=== PATIENT | male | born 1935 | race Caucasian/White ===

== ENCOUNTER 2016-11-03 06:48 | Inpatient (IN) ==
--- NOTE | 2016-11-03 07:33 | PROVIDER DOCUMENTATION ---
HPI-General Adult - General Chief Complaint: Altered Mental Status Stated Complaint: tremors, confusion Time Seen by Provider: 11/03/16 06:58 Source: patient, family Home Medications: Home Medication List Medication Instructions Recorded Confirmed Last Taken Type Bimatoprost 2.5 ml BOTH EYES DAILY 08/13/16 08/13/16 08/13/16 05:00 History Finasteride [Proscar] 5 mg PO DAILY 08/13/16 08/13/16 08/12/16 09:00 History Gabapentin 300 mg PO TID 08/13/16 08/13/16 08/12/16 21:00 History Metformin [Glucophage] 500 mg PO BID 08/13/16 08/13/16 08/12/16 21:00 History Metoprolol [Lopressor] 50 mg pe PO BID 08/13/16 08/13/16 08/12/16 09:00 History Simvastatin 20 mg PO HS 08/13/16 08/13/16 08/12/16 21:00 History - History of Present Illness -Gen Adult Nature of Presenting Problems: Per , pt woke up with confusion and tremor. Pt was disorientated and could not find his medications, etc. Denies LOC/fall/injury/CP/cough/fever/N/V. Pt was started chemo therapy for Multiple Myoloma since 10/[address] Wagner. Reports he improved a lot after EMS arrival. H/o CABG in year 1999. Location of Pain/Injury: reports: none Pain Radiation: reports: no radiation Quality of Pain: reports: none Severity: reports: moderate Onset/Duration: reports: this morning Timing: reports: improving, gone now Context/Activities at Onset: reports: none Modifying Factors: improves with: nothing Associated Symptoms: denies: arm pain, chest pain, constipation, cough, diaphoresis, diarrhea, fatigue, fever/chills, headaches, heartburn, loss of appetite, malaise, muscle aches, nausea, seizure, shortness of breath, pain with inspiration, syncope, vomiting, trouble walking Similar Symptoms Previously?: No Recently seen or treated by another doctor?: No Review of Systems - Adult - REVIEW OF SYSTEMS - ADULT Constitutional: reports: no symptoms reported. denies: fever, fatique Eyes: reports: no symptoms reported. denies: discharge, redness Ears, Nose, Mouth & Throat: reports: no symptoms reported. denies: ear pain, nose pain, loose teeth, throat pain Cardiovascular: reports: no symptoms reported Respiratory: reports: no symptoms reported. denies: chronic cough, cough, dyspnea on exertion, hemoptysis, pleurisy, shortness of breath, wheezing Gastrointestinal: reports: no symptoms reported Genitourinary: reports: no symptoms reported Musculoskeletal: reports: see HPI. denies: bone pain, back pain, frequent leg cramps, joint pain, joint swelling, muscle aches, muscle weakness Integumentary: reports: no symptoms reported Neurological: reports: see HPI, tremors, other (Confusion). denies: dizziness/ vertigo, headache/migraines, loss of balance, numbness, paresthesia, seizure, slurred speech, syncope Psychiatric: reports: no symptoms reported Endocrine: reports: no symptoms reported Hematologic/Lymphatic: reports: no symptoms reported Allergic/Immunologic: reports: no symptoms reported All Other Systems: Reviewed and Negative Past History - Adult - PAST MEDICAL HISTORY-ADULT Review of Records: reports: Old Records Reviewed, Nursing Assessment Review, Medications Reviewed, Social history reviewed & non-contributory. Physical Exam-General - PHYSICAL EXAM-ADULT Initial Vital Signs Reviewed: Yes - CONSTITUTIONAL General Appearance: appears well, alert, no apparent distress. negative: mild distress, moderate distress, severe distress, cachetic, obese, lethargic, slow to respond - EYES Eyes: PERRL/EOMI, pink conjunctivae, anisocoria - HEAD, EARS, NOSE, MOUTH & THROAT HENMT: normocephalic/atraumatic, moist mucous membranes - NECK Neck: non-tender, full range of motion, supple - RESPIRATORY Respiratory: chest non-tender, lungs clear, normal breath sounds, no pleuratic chest pain, no respiratory distress, no accessory muscle use - CARDIOVASCULAR Cardiovascular: normal peripheral pulses, regular rate, rhythm, no edema, no gallop, no JVD, no murmur - GASTROINTESTINAL (ABDOMEN) Abdominal Exam: normal bowel sounds, non tender, soft, no organomegaly, no pulsatile mass - MUSCULOSKELETAL Back Exam: normal inspection, no CVA tenderness, no vertebral tenderness Extremity: normal range of motion, non-tender, normal gait, normal inspection - SKIN Integumentary: normal color, normal turgor, warm/dry, abrasion(s) - NEUROLOGIC Neurologic: remarketing rep II-XII nml as tested, grossly normal, no motor/sensory deficits , negative romberg's sign. negative: aphasia, EOM palsy, facial droop, focal weakness, motor weakness, sensory deficit - PSYCHIATRIC Psych/Mental Status: normal mood/affect, normal thought content, normal thought process, oriented x 3 Progress - PLAN OF CARE/RESULTS Progress/Plan/Lab Results: Vital Signs - 8 hr 11/03/16 06:57 Temperature 97.9 F Pulse Rate 76 Respiratory Rate 19 Blood Pressure 183/80 O2 Sat by Pulse Oximetry 94 L Laboratory Results - last 24 hr 11/03/16 06:56 POC Glucose 188 H Orders Category Date Time Status Cardiac Monitoring DIRECTED Care 11/03/16 07:01 Active Finger Stick Blood Sugar (ED) DIRECTED Care 11/03/16 07:01 Active Saline Loc NOW Care 11/03/16 07:01 Active CHEST-1 VIEW [RAD] Stat Exams 11/03/16 07:01 Taken HEAD W/O CONTRAST [CT] Stat Exams 11/03/16 07:01 Ordered ABG [RESP] Routine Lab 11/03/16 07:12 Ordered ALCOHOL BLOOD Stat Lab 11/03/16 06:50 Received BLOOD CULTURE [BLDCUL] Stat Lab 11/03/16 07:27 Uncollected CBC WITH ELECTRONIC DIFF [HEME] Stat Lab 11/03/16 06:50 Results CK PROFILE [SP CHEM] Stat Lab 11/03/16 06:50 Received COMPREHENSIVE METABOLIC PANEL [CHEM] Stat Lab 11/03/16 06:50 Received LACTATE, PLASMA [CHEM] Stat Lab 11/03/16 06:50 Received PRO B-NATRIURETIC PEPTIDE Stat Lab 11/03/16 06:50 Received PROTIME WITH INR [COAG] Stat Lab 11/03/16 06:50 Received PTT [COAG] Stat Lab 11/03/16 06:50 Received TROPONIN T Stat Lab 11/03/16 06:50 Received TSH Stat Lab 11/03/16 06:50 Received URINALYSIS W/POSS RFLX CULT-1 [URINALYSIS] Stat Lab 11/03/16 07:01 Uncollected URINE DRUG SCREEN Stat Lab 11/03/16 07:01 Uncollected Pulse Oximetry Stat Oth 11/03/16 07:01 Active EKG [EKG] Stat Ther 11/03/16 06:48 Ordered Result Diagrams: 11/03/16 06:50 11/03/16 06:50 - EKG 1 EKG Interpretation (*Must complete 3 of following elements*): Abnormal Rate: 83 Rhythm: Sinus rhythm with PVC [place]: normal [place] Interval: normal ST Wave: non-specific ST changes Prior EKG Comparison: unchanged from prior - XRAY 1 XRAY Study: Chest Impression: Normal - CT/MRI 1 CT Study: Head Impression: Normal - CONSULTS/PCP/HOSPITALIST Notification #1 *Consult/PCP/Hospitalist*: Dr. Evans Time Discussed: 10:29 Consult Disposition: Will see in ED, Admit Departure - Departure Date of Disposition Decision: 11/03/16 Time of Disposition Decision: 10:28 DIAGNOSIS: History of cancer chemotherapy CHF (congestive heart failure) Qualifiers: Congestive heart failure type: unspecified congestive heart failure type Congestive heart failure chronicity: acute Qualified Code(s): I50.9 - Heart failure, unspecified Altered mental status Qualifiers: Altered mental status type: unspecified Qualified Code(s): R41.82 - Altered mental status, unspecified Disposition: ADMITTED INPATIENT 09 Certified Medical Emergency: Emergent Condition: Stable Referrals and Follow-Ups: Anayeli Velazquez CRNP [Primary Care Provider] - - Critical Care Note This patient required my direct & personal management of CC.: No
[2016-11-03 07:34] LABS: INR 1.06; PROTIME 11.2 Seconds (9.2-11.7)
[2016-11-03 07:35] LABS: EOS# 0.01 X1000 (0.0-0.7); EOS% 0.3 % (0.0-10.0); HEMOGLOBIN 10.5 g/dL (14.0-18.0); IMM GRAN# 0.68 X1000 (0.0-0.04); IMM GRAN% 20.1 % (0.0-0.5); LYMPH# 0.55 X1000 (1.2-3.4); LYMPH% 16.2 % (20.5-51.1); MANUAL DIFF NEEDED? NO; MCH 36.6 PG (27-31); MCHC 33.9 g/dL (33-37); MONO# 0.23 X1000 (0.11-0.59); MONO% 6.8 % (1.7-9.3); NEUT% 56.6 % (42.2-75.2); PLT 47 X1000 (130-400); RBC 2.87 XMIL (4.7-6.1)
[2016-11-03 07:44] LABS: AGAP 14; ALBUMIN 4.1 g/dL (3.5-5.0); ALKALINE PHOSPHATASE 70 U/L (32-122); BUN 21 mg/dL (8-22); CALCIUM 10.1 mg/dL (8.8-10.2); CHLORIDE 102 mmol/L (98-107); CK PROFILE 41 U/L (24-204); COSMO 283; GOT 16 U/L (10-34); GPT 15 U/L (10-44); POTASSIUM 4.6 mmol/L (3.5-5.1); SODIUM 137 mmol/L (136-145); TCO2 21 mmol/L (25-35); TOTAL BILIRUBIN 0.84 mg/dL (0.20-1.00); TOTAL PROTEIN 6.8 g/dL (6.3-8.3)
--- NOTE | 2016-11-03 07:46 | Diag Imaging Result Doc PS360 ---
EXAM: HEAD W/O CONTRAST HISTORY: AMS TECHNIQUE: Dose reduction protocol COMPARISON: None. FINDINGS: No parenchymal hemorrhage. No epidural or subdural hematoma. No subarachnoid hemorrhage. Mild atrophy and ventricular prominence. No mass identified on this noncontrasted exam. No hydrocephalus. No sinus opacification. IMPRESSION: 1.No hemorrhage. 2.Mild atrophy. Electronically signed by Micah Sky 11/03/2016 7:44 AM
--- NOTE | 2016-11-03 07:47 | Diag Imaging Result Doc PS360 ---
EXAM: CHEST-1 VIEW HISTORY: AMS TECHNIQUE: Portable AP COMPARISON: 03/27/2016 FINDINGS: The lungs are well expanded. The heart is not enlarged. Sternal wires are present. There is a calcified granuloma in the right costophrenic angle. The vessels are not distended. There are no infiltrates. No effusion identified. IMPRESSION: Stable chest. Electronically signed by Micah Sky 11/03/2016 7:45 AM
[2016-11-03 07:49] LABS: ALLEN TEST NO; BLOOD TYPE ARTERIAL; DRAW SITE R BRACHIAL; METHB 0.6 % (0.0-1.5); O2(CT) 13.3 mL/dL (15.0-23.0); PCO2(98.6) 34 mmHg (35-45); PO2(98.6) 84 mmHg (60-100); SAMPLE BLOOD; SAO2 97.9 % (95.0-100.0); THB 9.8 g/dL (11.5-17.4); pH(98.6) 7.42 (7.35-7.45)
[2016-11-03 07:50] LABS: MODALITY ROOM AIR
[2016-11-03] MEDS ORDERED: NS 500 ML IV ONE (07:51)
[2016-11-03 07:52] LABS: URINE CULTURE NEEDED? NO; URINE MICRO REVIEW NEEDED? NO; URINE SOURCE CLEAN CATCH
[2016-11-03 08:01] LABS: BILIRUBIN URINE NEGATIVE (NEGATIVE); BLOOD URINE NEGATIVE (NEGATIVE); COLOR YELLOW; GLUCOSE URINE 500 mg/dL (NEGATIVE); LEUKOCYTES URINE NEGATIVE (NEGATIVE); NITRITE URINE NEGATIVE (NEGATIVE); PH URINE 5.5; PROTEIN URINE TRACE mg/dL (NEGATIVE); TURBIDITY URINE CLEAR (CLEAR); UROBILINOGEN URINE NORMAL (NORMAL)
[2016-11-03 08:02] LABS: UR EPITHELIAL CELLS <10 /HPF (<10); URINE BACTERIA NEGATIVE /HPF; URINE RBC <10 /HPF (<10); URINE WBC <10 /HPF (<10)
[2016-11-03 08:13] LABS: UR AMPHETAMINES QUAL NONE DETECTED (NONE DETECT); UR BARBITUATES QUAL NONE DETECTED (NONE DETECT); UR BENZODIAZEPIN QUAL NONE DETECTED (NONE DETECT); UR CANNABINOIDS QUAL NONE DETECTED (NONE DETECT); UR COCAINE QUAL NONE DETECTED (NONE DETECT); UR METHADONE QUAL NONE DETECTED (NONE DETECT); UR OPIATES QUAL NONE DETECTED (NONE DETECT); UR OXYCODONE QUAL NONE DETECTED (NONE DETECT); UR PCP QUAL NONE DETECTED (NONE DETECT)
--- NOTE | 2016-11-03 14:38 | HISTORY AND PHYSICAL ---
PRIMARY CARE PROVIDER: KALEIGH Cantu. PRIMARY ONCOLOGIST: Dr. Wagner. CHIEF COMPLAINT: Tremors and confusion. HISTORY OF PRESENT ILLNESS: Mr. Hitesh Garcia is an 81-year-old, male, who has a medical history of multiple myeloma on chemotherapy treatment x1 month now. He states that he woke up about 2:15 this morning to go the bathroom, felt fine then. Later in the morning he was awoken with some confusion and severe tremors and the tremors lasted a few minutes. He never lost consciousness and never had a fall. States he was looking for his diabetic medication and could not find it although it was right in front of him. He asked his to call 911 and he was brought here to the hospital. But apparently upon EMS arriving he was much improved, near back to normal. Workup lab [facility]borne did not reveal anything significant. He did have an elevated proBNP of 1982, has a history of systolic congestive heart failure with an EF of 45%-50% and pulmonary hypertension with a systolic of 56 mmHg and a history of pancytopenia which is stable. The platelets are down a little bit this admit from 98 to 47, but no complaints of bleeding noted. He did have a head CT, which was negative for any acute findings, negative for hemorrhage, it did show some mild atrophy. Urine drug screen was negative. Alcohol level 0. The patient is going to be admitted overnight for observation. PAST MEDICAL HISTORY: 1. Coronary artery disease status post coronary artery bypass graft. 2. Diabetes mellitus type 2. 3. Multiple myeloma with chemotherapy x1 month. 4. Degenerative joint disease. 5. Systolic congestive heart failure with an ejection fraction of 45%-50%. From April 2016. 6. Pulmonary artery hypertension with a systolic of 56 mmHg from echo performed April 2016. 7. Pancytopenia. 8. Benign prostatic hypertrophy. 9. Neuropathy. 10. Hypertension. 11. Hyperlipidemia. SURGICAL HISTORY: Back surgery, CABG in 1999, bone marrow biopsy, bilateral inguinal hernia repairs, and skin cancer removed from the back. SOCIAL HISTORY: Quit greater than 20 years ago with smoking but was a 2-3 pack per day smoker. Denies alcohol or illicit drug use. Lives at home alone with his . FAMILY HISTORY: Noncontributory. REVIEW OF SYSTEMS: Fourteen point review of systems were complete and all were negative except for those mentioned in above HPI. ALLERGIES: No known drug allergies. HOME MEDICATIONS: Bimatoprost 2.5 mL drops in both eyes daily. Proscar 5 mg p.o. daily. Neurontin 300 mg p.o. t.i.d. Metformin 500 mg p.o. twice daily. Metoprolol 50 mg p.o. twice daily. Simvastatin 20 mg p.o. nightly. PHYSICAL EXAMINATION: VITAL SIGNS: Temperature 97.9 degrees, heart rate 58, respiratory rate 18, blood pressure 147/58, O2 saturation 97% on room air. He is 5 feet 10 inches tall, 180 pounds. BMI is 25.8. GENERAL: Mr. Hitesh Garcia is an 81-year-old, male, he is in no acute distress. He is able to answer questions appropriately. He is somewhat teary eyed on occasional conversation. HEENT: Atraumatic, normocephalic. Pupils equal, round, reactive to light. Extraocular movements intact. Mucous membranes are moist. NECK: No JVD or carotid bruits noted. CARDIOVASCULAR: S1, S2 with irregular beats. No rubs, gallops, or murmurs. PULMONARY: Clear to auscultation. Bilateral breath sounds. No accessory muscle use or work of breathing noted. Currently on room air. GI: Soft, nontender, nondistended. Positive bowel sounds x4. EXTREMITIES: No edema noted. +2 dorsalis and radial pulses. Moves all extremities equally. NEUROLOGIC: Alert and oriented x4. Cranial nerves 2-12 intact. SKIN: Warm, dry, intact. LABORATORY DATA: White blood cells 3000, hemoglobin 10, hematocrit 31, platelet count 47,000. INR 1.06, PTT 27. ABGs; pH 7.42, pCO2 34, PO2 84, bicarb 23, base excess -2, saturation 95% lactate 1.1, this is on room air. Sodium 137, potassium 4.6, BUN 21, creatinine 0.9, glucose 205, calcium 10, total bilirubin 0.84, AST 16, ALT 15, CK 41, troponin less than 0.01 , proBNP 1982, plasma lactate 1.3, TSH 1.34. Urinalysis trace protein, 500 glucose, 40 ketones , otherwise negative. Urine drug screen negative. Alcohol level 0. DIAGNOSTIC DATA: Imaging: Chest x-ray negative for any acute findings. Sternal wires are present. Heart is not enlarged. The lungs are well expanded. Head CT negative for hemorrhage, shows mild atrophy. EKGs, 2 were performed, first EKG sinus rhythm with PVCs, rate of 83, second EKG sinus bradycardia with occasional PVCs, rate of 54. ASSESSMENT AND PLAN: 1. Transient encephalopathy likely secondary to being on chemotherapy. Apparently he woke confused with tremors which resolved within a few minutes. He states he feels like he is back at baseline but is worried about having another spell. It could possibly be TIA. He has no history of stroke in the past. Will not use aspirin for now secondary to platelet count being 47. Could consider an MRI on Saturday and he will be following up with Dr. Wagner on Saturday. 2. Multiple myeloma, followed by Dr. Wagner as outpatient. He has a an appointment scheduled for November 06. Could consider getting the MRI on Saturday so he can be followed up on Saturday with it. 3. Diabetes mellitus type 2. Sliding scale insulin. Pattern blood glucoses. 4. Coronary artery disease status post coronary artery bypass graft in the past. No complaints of chest pain at this time. Cardiac enzymes are negative. No ST elevations on the EKG. 5. Systolic congestive heart failure with an ejection fraction 45%-50%. There is no edema. He states he has mild shortness of breath with activity which is normal for him. The proBNP is 1982. His most recent echo was April of this year. We will decrease his beta-cony to 25 twice daily. 6. Pulmonary artery hypertension with 56 mmHg systolic, see previous number. 7. Frequent premature ventricular contractions. Beta-cony therapy should help. Electrolytes are normal. 8. Pancytopenia secondary to cancer. White count is actually improved since the last time it was checked, it went from 2-3. Hemoglobin hematocrit are stable. Platelet count is down from 98,000 to 47,000, but no complaints of bleeding at this time. 9. BPH. Continue home Proscar. 10. Neuropathy. Continue Neurontin. 11. Hypertension. Continue beta cony. 12. Hyperlipidemia. Continue statin. 13. Deep venous thrombosis prophylaxis sequential compression devices. 14. Gastrointestinal prophylaxis proton pump inhibitor. Patient seen and examined. Agree with KALEIGH note. It reflects my assessment and plan. Dictated by KALEIGH Eng for Roger Beck MD cc: KALEIGH Eng MD Naveen T. Lobo, MD [facility] MTDD
[2016-11-03] MEDS ORDERED: TYLENOL PO PRN (15:04)
[2016-11-03] MEDS ORDERED: ZOFRAN IV PRN (15:04)
[2016-11-03] MEDS: GLUCOPHAGE PO SCH (16:03)
[2016-11-03] MEDS: NEURONTIN PO SCH (16:03)
[2016-11-03] MEDS ORDERED: ZOCOR PO SCH (21:00)
[2016-11-03] MEDS ORDERED: LOPRESSOR PO SCH (21:00)
[2016-11-03] MEDS ORDERED: PROSCAR PO SCH (21:00)
[2016-11-04] MEDS: NEURONTIN PO SCH ×2 (01:44→06:02)
[2016-11-04] MEDS ORDERED: LUMIGAN 0.01% OPH SOLUTION BOTH EYES SCH ×2 (01:50→09:00)
[2016-11-04 06:45] LABS: EOS# 0.02 X1000 (0.0-0.7); EOS% 0.7 % (0.0-10.0); HEMATOCRIT 26.9 % (42.0-52.0); HEMOGLOBIN 8.8 g/dL (14.0-18.0); IMM GRAN# 0.01 X1000 (0.0-0.04); IMM GRAN% 0.4 % (0.0-0.5); LYMPH# 0.75 X1000 (1.2-3.4); MANUAL DIFF NEEDED? YES; MCH 35.2 PG (27-31); MCHC 32.7 g/dL (33-37); MCV 107.6 FL (81-99); MONO% 11.2 % (1.7-9.3); NEUT% 59.7 % (42.2-75.2); PLT 44 X1000 (130-400)
[2016-11-04] MEDS ORDERED: PRILOSEC PO SCH (07:00)
[2016-11-04 07:09] LABS: AGAP 10; ALBUMIN 3.9 g/dL (3.5-5.0); ALKALINE PHOSPHATASE 64 U/L (32-122); BUN 26 mg/dL (8-22); CALCIUM 9.4 mg/dL (8.8-10.2); CHLORIDE 107 mmol/L (98-107); COSMO 287; GOT 13 U/L (10-34); GPT 13 U/L (10-44); MAGNESIUM 1.6 mg/dL (1.5-2.7); POTASSIUM 3.6 mmol/L (3.5-5.1); SODIUM 140 mmol/L (136-145); TCO2 23 mmol/L (25-35); TOTAL PROTEIN 5.9 g/dL (6.3-8.3)
[2016-11-04 07:11] LABS: PTT PL 30.6 Seconds (22.6-43.9)
[2016-11-04 07:13] LABS: INR 1.14 (0.86-1.15); PROTIME 14.9 Seconds (12.1-15.5)
[2016-11-04 07:46] LABS: BANDS 2 % (0-1); LYMPHS 26 % (21-51); MONO 6 % (1-9)
[2016-11-04 07:47] LABS: POLYCHROM OCCASIONAL
[2016-11-04 07:48] LABS: LARGE PLATELETS OCCASIONAL
[2016-11-04 07:49] VITALS: BP 172/47
[2016-11-04] MEDS: GLUCOPHAGE PO SCH (08:34)
--- NOTE | 2016-11-05 04:29 | DISCHARGE SUMMARY ---
ADMISSION DATE: 11/03/2016 DISCHARGE DATE: 11/04/2016 PRIMARY CARE PROVIDER: KALEIGH Cantu. PRIMARY ONCOLOGIST: Dr. Wagner. ADMISSION DIAGNOSES: 1. Transient encephalopathy, likely secondary to being on chemotherapy. 2. Multiple myeloma. 3. Diabetes type 2. 4. Coronary artery disease, status post coronary artery bypass graft in the past. 5. Systolic congestive heart failure with ejection fraction of 45-50%. 6. Pulmonary artery hypertension. 7. Pancytopenia secondary to cancer. 8. Neuropathy. 9. Hypertension. 10. Hyperlipidemia. DISCHARGE DIAGNOSES: 1. Transient encephalopathy, likely secondary to being on chemotherapy, improved. 2. Multiple myeloma. 3. Diabetes type 2. 4. Coronary artery disease, status post coronary artery bypass graft in the past. 5. Systolic congestive heart failure with ejection fraction of 45-50%. 6. Pulmonary artery hypertension. 7. Pancytopenia secondary to cancer. 8. Neuropathy. 9. Hypertension. 10. Hyperlipidemia. SUMMARY OF FINDINGS: This is an 81-year-old, male who has been receiving chemotherapy treatments for the past month for his multiple myeloma. States that he woke up around 2:15 a.m. yesterday morning to go to the bathroom and felt fine. Later in the morning, he was awakened with some confusion and severe tremors. The tremors lasted for a few minutes. He never lost consciousness and never had a fall. States he was looking for his diabetic medication and could not find it, although it was right in front of him. He asked his to call 911 and so he was brought to the hospital. Apparently upon EMS arriving, he had been much improved, was back to near normal. Lab work did not reveal anything significant. His urine drug screen was negative. Alcohol level was negative. He was admitted for observation. This a.m., he was found to be much more alert and oriented. It was felt that he could safely be discharged home. DISCHARGE MEDICATIONS: Aspirin 81 mg p.o. daily, Lumigan eyedrops 1 to both eyes at bedtime, finasteride 5 mg p.o. daily, gabapentin 300 mg p.o. b.i.d., Humulin R KwikPen 500 units subcutaneous daily, Revlimid 10 mg p.o. every other day, metformin 500 mg p.o. b.i.d. a.c., and simvastatin 20 mg p.o. at bedtime. FOLLOWUP: He will need to follow up with his primary care provider in 1 week and with his oncologist as previously scheduled. All discharge instructions were reviewed with the patient and he verbalized understanding. A 35 minute discharge. Dictated by KALEIGH Chiang for Roberto Singh MD cc: KALEIGH Chiang MD [facility] Naveen T. Lobo, MD
--- NOTE | 2016-11-05 06:42 | EKG Report ---
Test Performed on : 11/04/2016 08:30:21 AM Test Reason : ams; pvc's Blood Pressure : / mmHG Vent. Rate : 052 BPM Atrial Rate : 052 BPM P-R Int : 178 ms QRS Dur : 138 ms QT Int : 494 ms P-R-T Axes : 055 025 042 degrees QTc Int : 459 ms Sinus bradycardia. with occasional premature ventricular complexes. Nonspecific intraventricular block Abnormal ECG When compared with ECG of 03-NOV-2016 11:17, (Unconfirmed) Nonspecific T wave abnormality no longer evident in Lateral leads Unconfirmed Result
--- NOTE | 2016-11-05 10:14 | EKG Report ---
Test Performed on : 11/03/2016 06:54:45 AM Test Reason : ED. CANC IN ERROR Blood Pressure : / mmHG Vent. Rate : 083 BPM Atrial Rate : 083 BPM P-R Int : 174 ms QRS Dur : 134 ms QT Int : 426 ms P-R-T Axes : 057 -07 087 degrees QTc Int : 500 ms Sinus rhythm. with occasional and consecutive premature ventricular complexes. Possible Left atrial enlargement Nonspecific intraventricular block Inferior infarct , age undetermined Abnormal ECG When compared with ECG of 13-AUG-2016 08:57, No significant change was found Unconfirmed Result
== END 2016-11-04 10:50 | disposition home or self-care (01) ==
LOC: SUPCPDRO → ED 06:48 → P.MEDSURG 13:46
PROVIDERS: ATTEND Internal Medicine

== ENCOUNTER 2018-08-25 13:42 | Inpatient (IN) ==
[2018-08-25 16:09] LABS: BASO# 0.01 X1000 (0.0-0.2); BASO% 0.5 % (0.0-0.8); HEMATOCRIT 32.8 % (42.0-52.0); HEMOGLOBIN 10.7 g/dL (14.0-18.0); LYMPH# 0.59 X1000 (1.2-3.4); LYMPH% 27.7 % (20.5-51.1); MCH 32.3 PG (27-31); MCHC 32.6 g/dL (33-37); MCV 99.1 FL (81-99); MONO# 0.51 X1000 (0.11-0.59); MONO% 23.9 % (1.7-9.3); MPV 11.7 FL (7.4-10.4); NEUT# 1.02 X1000 (1.4-6.5); NEUT% 47.9 % (42.2-75.2); PLT 146 X1000 (130-400); RBC 3.31 XMIL (4.7-6.1); RDW 16.2 % (11.5-14.5); WBC 2.13 X1000 (4.8-10.8)
[2018-08-25 16:15] LABS: AGAP 10; ALB/GLOB RATIO 2.2; ALBUMIN 3.5 g/dL (3.5-5.0); ALKALINE PHOSPHATASE 61 U/L (32-122); BUN 19 mg/dL (8-22); CALCIUM 8.8 mg/dL (8.8-10.2); CHLORIDE 112 mmol/L (98-107); COSMO 288; CREATININE 0.9 mg/dL (0.7-1.2); ESTIMATED GFR > 60; GLUCOSE 109 mg/dL (70-104); GOT 10 U/L (10-34); GPT 9 U/L (10-44); POTASSIUM 4.2 mmol/L (3.5-5.1); SODIUM 143 mmol/L (136-145); TCO2 21 mmol/L (25-35); TOTAL BILIRUBIN 0.58 mg/dL (0.20-1.00); TOTAL PROTEIN 5.1 g/dL (6.3-8.3)
--- NOTE | 2018-08-25 16:54 | Diag Imaging Result Doc PS360 ---
EXAM: CT NECK W/CONTRAST 08/25/2018 HISTORY: neck pain TECHNIQUE: This exam was performed using automated exposure control, adjustment of mA or kV according to patient size, and/or use of iterative reconstruction technique. COMMENT: There are no previous studies available for comparison. The nasopharynx is unremarkable. The pharynx is unremarkable. The epiglottis is not enlarged. The larynx is unremarkable. There are bilateral large pleural effusions. There is some groundglass opacity in the visualized portions of the lungs dependently which may be indicative of pulmonary edema. The salivary glands are symmetrical in appearance. There is an expansile somewhat lobulated lesion arising from the anterior hyoid slightly to the left the midline measuring almost 12 mm in diameter. This has a well-defined sclerotic border. There is no evidence of significant adenopathy. The visualized paranasal sinuses are clear. IMPRESSION: Expansile lesion just to the left the midline in the anterior arch of the hyoid bone. This appears to be benign however the possibility of a giant cell tumor or eosinophilic granuloma would be in the differential diagnosis. Bilateral pleural effusions and pulmonary edema. Electronically signed by Derek Serrano 08/25/2018 4:52 PM
--- NOTE | 2018-08-25 16:59 | Diag Imaging Result Doc PS360 ---
EXAM: CHEST-2 VIEWS 08/25/2018 HISTORY: cough TECHNIQUE: PA and lateral chest COMMENT: There are bilateral pleural effusions. This was not the case on 06/17/2017. The heart size is enlarged. There is ill-defined opacity in the lower lobes particularly the left lower lobe. There may be COPD. IMPRESSION: Bilateral pleural effusions and cardiomegaly. Left lower lobe pneumonia. Electronically signed by Derek Serrano 08/25/2018 4:57 PM
[2018-08-25] MEDS ORDERED: ZOFRAN IV PRN (19:02)
[2018-08-25] MEDS ORDERED: MORPHINE IV PRN (19:07)
--- NOTE | 2018-08-25 19:14 | PROVIDER DOCUMENTATION ---
This chart was entered by Denice Weeks Scribe, acting as scribe for Kehinde Ellis MD. HPI-General Adult - General Chief Complaint: Neck Pain Stated Complaint: NECK PAIN Time Seen by Provider: 08/25/18 13:56 Source: patient Allergies/Adverse Reactions: Patient Allergies Allergy/AdvReac Type Severity Reaction Status Date / Time No Known Allergies Allergy Verified 04/04/17 13:17 Home Medications: Home Medication List Medication Instructions Recorded Confirmed Last Taken Type Metformin [Glucophage] 500 mg PO BID AC 08/13/16 08/25/18 11/02/16 History Simvastatin 20 mg PO HS 08/13/16 08/25/18 11/02/16 History Lisinopril 1 tab PO DAILY 03/03/17 08/25/18 03/03/17 13:00 History Finasteride [Proscar] 5 mg PO DAILY 04/04/17 08/25/18 Unknown History Metoprolol [Lopressor] 0.5 tab PO BID 04/04/17 08/25/18 Unknown History - History of Present Illness -Gen Adult Nature of Presenting Problems: Patient is a 83 year old male who presents with bilateral neck pain that has been present since last week. Denies injury or trauma. Report history of multiple myeloma. followed by Dr Wagner. Pt also having SOB and mild cough for past week. Location of Pain/Injury: reports: neck Pain Radiation: reports: no radiation Quality of Pain: reports: aching Severity: reports: mild Onset/Duration: reports: last week Timing: reports: still present Context/Activities at Onset: reports: light activity Modifying Factors: improves with: nothing Associated Symptoms: reports: denies symptoms Similar Symptoms Previously?: Yes Recently seen or treated by another doctor?: No Review of Systems - Adult - REVIEW OF SYSTEMS - ADULT Constitutional: reports: no symptoms reported. denies: chills, fever, fatique Eyes: reports: no symptoms reported Ears, Nose, Mouth & Throat: reports: see HPI. denies: ear pain, sinus problem, nose pain, throat pain Cardiovascular: reports: no symptoms reported Respiratory: reports: chronic cough, cough, dyspnea on exertion, shortness of breath Gastrointestinal: reports: no symptoms reported Genitourinary: reports: no symptoms reported Musculoskeletal: reports: see HPI, neck pain. denies: back pain, muscle aches Integumentary: reports: no symptoms reported Neurological: reports: no symptoms reported Psychiatric: reports: no symptoms reported Endocrine: reports: no symptoms reported Hematologic/Lymphatic: reports: no symptoms reported Allergic/Immunologic: reports: no symptoms reported All Other Systems: Reviewed and Negative Past History - Adult - PAST MEDICAL HISTORY-ADULT Review of Records: reports: Nursing Assessment Review, Medications Reviewed, Social history reviewed & non-contributory. Major Childhood Illnesses: reports: denies history Cardiovascular: reports: CAD, HTN, hyperlipidemia Respiratory: reports: denies history Gastrointestinal: reports: denies history Obstetrical/Gynecological: reports: denies history Genitourinary: reports: denies history Musculoskeletal: reports: arthritis, cancer (MULTIPLE MYELOMA) Neurological: reports: denies history Psychiatric: reports: denies history Endocrine/Immune: reports: Diabetes Other Conditions: reports: denies history, other (multiple myeloma) - PRIOR SURGERIES/PROCEDURES Surgical/Procedure History: reports: CABG, hernia repair, back/neck (back) - IMMUNIZATION STATUS Childhood Immunizations: See Nurse Assessment Flu Vaccine: See Nurse Assessment - FAMILY HISTORY Family History: reviewed, not pertinent - SOCIAL HISTORY Smoking: cigarettes (former) Substance Use: denies Physical Exam-General - PHYSICAL EXAM-ADULT Initial Vital Signs Reviewed: Yes - CONSTITUTIONAL General Appearance: alert, no apparent distress. negative: lethargic, slow to respond - HEAD, EARS, NOSE, MOUTH & THROAT HENMT: moist mucous membranes, normal ENT inspection, other (TTP left lateral neck. no oral lesions). negative: angioedema, hearing deficit - NECK Neck: lymphadenopathy (bilateral anterior cervical nodes with tenderness). negative: limited range of motion, tender lateral - RESPIRATORY Respiratory: chest non-tender, lungs clear, decreased breath sounds, crackles. negative: stridor - CARDIOVASCULAR Cardiovascular: normal peripheral pulses, regular rate, rhythm. negative: tachycardia, systolic murmur - GASTROINTESTINAL (ABDOMEN) Abdominal Exam: normal bowel sounds, non tender, soft. negative: guarding, rebound - MUSCULOSKELETAL Extremity: non-tender, normal inspection. negative: deformity, erythema - SKIN Integumentary: normal color, normal turgor, warm/dry. negative: cyanosis, ecchymosis, erythema, jaundice - NEUROLOGIC Neurologic: grossly normal. negative: aphasia, facial droop - PSYCHIATRIC Psych/Mental Status: normal mood/affect, oriented x 3. negative: paranoid Progress - PLAN OF CARE/RESULTS Progress/Plan/Lab Results: Vital Signs - 8 hr 08/25/18 13:45 Temperature 98.7 F Pulse Rate 85 Respiratory Rate 18 Blood Pressure 127/76 O2 Sat by Pulse Oximetry 97 A/P: Pumonary Edema, pleural effusions. CT of neck shows expspansive lesion to left midline neck, unknown poss giant cell tumor, poss eosinophilic granuloma. Dr Fuchs will admit. Result Diagrams: 08/25/18 15:30 08/25/18 15:30 - XRAY 1 XRAY Study: Chest Impression: See EMR Report (EXAM: CHEST-2 VIEWS 08/25/2018 HISTORY: cough TECHNIQUE: PA and lateral chest COMMENT: There are bilateral pleural effusions. This was not the case on 06/17/2017. The heart size is enlarged. There is ill-defined opacity in the lower lobes particularly the left lower lobe. There may be COPD. IMPRESSION: Bilateral pleural effusions and cardiomegaly. Left lower lobe pneumonia. Electronically signed by Derek Serrano 08/25/2018 4:57 PM 08/25/18 [id number] Interpreting Physician: Derek Serrano MD Dictated Date/Time: 08/25/183 cc: Kehinde Ellis MD; Lela Manzanares MD) - CT/MRI 1 CT Study: Neck Impression: See EMR Report ( EXAM: CT NECK W/CONTRAST 08/25/2018 HISTORY: neck pain TECHNIQUE: This exam was performed using automated exposure control, adjustment of mA or kV according to patient size, and/or use of iterative reconstruction technique. COMMENT: There are no previous studies available for comparison. The nasopharynx is unremarkable. The pharynx is unremarkable. The epiglottis is not enlarged. The larynx is unremarkable. There are bilateral large pleural effusions. There is some groundglass opacity in the visualized portions of the lungs dependently which may be indicative of pulmonary edema. The salivary glands are symmetrical in appearance. There is an expansile somewhat lobulated lesion arising from the anterior hyoid slightly to the left the midline measuring almost 12 mm in diameter. This has a well-defined sclerotic border. There is no evidence of significant adenopathy. The visualized paranasal sinuses are clear. IMPRESSION: Expansile lesion just to the left the midline in the anterior arch of the hyoid bone. This appears to be benign however the possibility of a giant cell tumor or eosinophilic granuloma would be in the differential diagnosis. Bilateral pleural effusions and pulmonary edema. Electronically signed by Derek Serrano 08/25/2018 4:52 PM 08/25/18 1652 Interpreting Physician: Derek Serrano MD Dictated Date/Time: 08/25/18 1646 cc: Kehinde Ellis MD; Lela Manzanares MD) - CONSULTS/PCP/HOSPITALIST Notification #1 *Consult/PCP/Hospitalist*: KALEIGH Norwood for Hospitalist Time Discussed: 17:36 Reason/Comments: Dr. Ellis consulted with Enma about patient. Consult Disposition: Will see in ED, Admit #2 Consult: Dr Paz Time Discussed: 18:58 Departure - Departure Date of Disposition Decision: 08/25/18 Time of Disposition Decision: 17:36 DIAGNOSIS: Pulmonary edema, Neck mass Disposition: ADMITTED INPATIENT 09 Certified Medical Emergency: Emergent Condition: Stable Additional Freetext Instructions: We have examined and treated you today on an emergency basis only. This was not a substitute for, or an effort to provide, complete medical care. In most cases, you must let your doctor check you again. Tell your doctor about any new or lasting problems. We cannot recognize and treat all injuries or illnesses in one Emergency Department visit. If you had special tests, such as X-rays or CT scans, will be reviewed by radiologist and will call you if there are any new suggestions Follow up with primary care provider in 1 to 2 days if no improvement. If you do not have a primary care provider, you need to choose one as soon as possible. Take medicines as prescribed. Monitor for any side effects or adverse events from medications. If any side effect, adverse event or rash develops, or if you suspect any other adverse reaction to the medication, then discontinue the medication immediately and contact clinic /PCP or go to the nearest ER. Narcotic meds / sedative meds instruction - patent advised not to drive, operate any machinery or go into water after taking meds as it may impair mental ability to react to the situation in an appropriate manner . Continue other current medicines. Follow up with PCP within 24-48 hours, or sooner if symptoms worsen or fail to improve. Patient / guardian verbalizes understanding of treatment plan, medication, and side effects and agrees with treatment plan. Patient leaves ER in stable condition and ambulatory state. Return to ER as needed. Discharge instructions reviewed verbally and given to patient in written form. Follow up with primary care provider. Referrals and Follow-Ups: Lela Manzanares MD [Primary Care Provider] - - Critical Care Note This patient required my direct & personal management of CC.: No Attestation - Physician/ RYAN Attestation Patient care was provided by Advanced Practice Provider:: No The physician spent face to face time with patient:: Yes Advanced Practice Provider documentation review:: Supervising physician onsite and consulted in the evaluation and care of this patient. The physician did have a face to face encounter with the patient. This chart was documented by the indicated scribe, (Denice Weeks Scribe) and accurately reflects the services I performed and decisions made by me, Kehinde Hendrix MD, as attested by the provider's signature.
[2018-08-25] MEDS: ROCEPHIN 1 GM in NS 50 ML IV SCH (19:40)
[2018-08-25] MEDS: ZITHROMAX PO SCH (19:41)
--- NOTE | 2018-08-25 19:50 | HISTORY AND PHYSICAL ---
HISTORY OF PRESENT ILLNESS: This is an 83-year-old who presented to the emergency room. He has trouble giving a history, but he at least for a week now every day he has had several episodes of severe pain, points to the back of his right neck, and then he said it moved to the left side of his neck, and this brought him to the emergency room, and apparently this was witnessed by the ER physician, crying and in terrible pain. On the CT scan of his neck that was done in the emergency room, he has an expansile lesion just to the left of the midline in the anterior arch of the hyoid bone. It appears to be benign but possibly a giant cell tumor or eosinophilic granuloma. He has a history of multiple myeloma so I am going to admit him for further evaluation. Ears, Nose and Throat is going to be involved. Dr. Wagner is his oncologist. PAST MEDICAL HISTORY: 1. Coronary artery disease status post CABG bypass. 2. Diabetes mellitus type 2. 3. Multiple myeloma, also myelodysplastic syndrome. He has been on chemotherapy, getting active treatment with dexamethasone in the past. 4. Degenerative disk disease. 5. Systolic congestive heart failure. Ejection fraction was 45% to 50% so very mild on an echo back in April 2016. 6. Pulmonary arterial hypertension. PA pressure is about 56 on echo from 2017. 7. Pancytopenia with myelodysplastic syndrome. 8. Benign prostatic hypertrophy. 9. Neuropathy. 10. Hypertension. 11. Hyperlipidemia. PAST SURGICAL HISTORY: 1. He had back surgery x1. 2. CABG bypass 2000. 3. Bone marrow biopsy in the past. 4. Bilateral inguinal hernia repairs. 5. Skin cancer removed in his back. SOCIAL HISTORY: Quit smoking 50 years ago. Used to smoke 2 to 3 packs a day. Negative for alcohol. Negative for illicit drugs. He is . He lives with his . FAMILY HISTORY: Daughter has a history of lung cancer, and I think she a couple years ago. Two grandchildren with diabetes mellitus. REVIEW OF SYSTEMS: He has a hard time giving me. He did not describe fever, chills or weight gain or loss. He did not describe any change in his visual or hearing acuity. He admits he has a hard time remembering things, and then this neck pain, which is in the posterior neck, right behind his ears and it is a shooting pain. It sounds like it has some spasm with it. Right now his neck is supple. He can move it around freely with no trouble and no sign of cervical adenopathy on exam. Respiratory: No increased work of breathing or dyspnea. Cardiovascular: No chest pain or tachy palpitation. Gastrointestinal and Genitourinary: No gross hematuria or dysuria. Musculoskeletal and neurologic: No other new focal complaints. PHYSICAL EXAMINATION: VITAL SIGNS: In the emergency room, temperature 98.7 degrees, pulse 85, respirations 18, blood pressure 127/76. HEENT: Pupils are equal and round. LUNGS: Clear in all lung wu. CARDIOVASCULAR: Regular rhythm and rate without murmur or S3. ABDOMEN: Soft. SKIN: Warm and dry. NECK: Supple. Carotid pulses appear to be 2+ and symmetrical. I do not appreciate carotid bruits. I do not appreciate any masses or adenopathy and even when pressing on the posterior neck, he is not tender anywhere at the present time, but apparently when he has these spasms, he is very tender and very sensitive both to the anterior and posterior neck. LABORATORY DATA: White count 2130, hematocrit 32, platelet count 146,000. Sodium 146, potassium 4.2, chloride 112, BUN 19, creatinine 0.9, albumin is 3.5. IMAGING: Chest x-ray: Bilateral pleural effusions, cardiomegaly, left lower lobe pneumonia suggested and has reported the neck CT expansile lesion just to the left of the midline in the anterior arch of the hyoid bone. Appears to be benign, but could be a giant cell tumor, eosinophilic granuloma. I do not know if an MRI would expand our view on this, but we will plan on an MRI of the neck in the morning. As far as pain, I will see if we can let him have some morphine for pain 2 to 4 mg IV in I guess q.4 hours p.r.n. pain. I am going to try him on a muscle relaxer to see if this makes any difference. We will put him on Robaxin 750 mg, and we will give that to him 3 times a day. We will check his thyroid functions T4 and TSH. We will check a sedimentation rate and C- reactive protein. We will just look at his CBC and his electrolytes, which on review I do not see any concerns there. Note that his blood sugars also seem to be in the normal range. I will ask Ears, Nose and Throat to evaluate. cc: Abdifatah Fuhcs MD
--- NOTE | 2018-08-25 19:52 | PROGRESS NOTE ---
DATE: 08/25/2018 ADDENDUM REPORT: Note: He has bilateral pleural effusion and a left lower lobe infiltrate. He does not give a history that would be consistent with pneumonia. Nonetheless, we are going to treat him for community-acquired pneumonia. I do not see how there can be a relationship between this infiltrate and his neck pain though, and so we will follow clinically. We will check a sputum for culture. Put him on Rocephin and azithromycin. cc: Abdifatah Fuchs MD
[2018-08-25] MEDS: HUMALOG SUBQ SCH (21:00)
[2018-08-25] MEDS: LOPRESSOR PO SCH (21:00)
[2018-08-25] MEDS: ZOCOR PO SCH (22:48)
[2018-08-26] MEDS: HUMALOG SUBQ SCH ×4 (06:11→21:28)
[2018-08-26] MEDS ORDERED: GLUCOPHAGE PO SCH (07:00)
[2018-08-26 07:25] LABS: BASO# 0.02 X1000 (0.0-0.2); BASO% 1.1 % (0.0-0.8); EOS# 0.01 X1000 (0.0-0.7); EOS% 0.5 % (0.0-10.0); HEMATOCRIT 34.6 % (42.0-52.0); HEMOGLOBIN 11.2 g/dL (14.0-18.0); LYMPH# 0.63 X1000 (1.2-3.4); LYMPH% 34.2 % (20.5-51.1); MCH 32.5 PG (27-31); MCHC 32.4 g/dL (33-37); MCV 100.3 FL (81-99); MONO# 0.45 X1000 (0.11-0.59); MONO% 24.5 % (1.7-9.3); MPV 11.7 FL (7.4-10.4); NEUT# 0.73 X1000 (1.4-6.5); NEUT% 39.7 % (42.2-75.2); PLT 142 X1000 (130-400); RBC 3.45 XMIL (4.7-6.1); RDW 16.5 % (11.5-14.5); WBC 1.84 X1000 (4.8-10.8)
[2018-08-26 07:45] LABS: AGAP 11; ALB/GLOB RATIO 1.2; ALKALINE PHOSPHATASE 56 U/L (32-122); BUN 16 mg/dL (8-22); CALCIUM 8.7 mg/dL (8.8-10.2); CHLORIDE 112 mmol/L (98-107); COSMO 286; CREATININE 0.8 mg/dL (0.7-1.2); ESTIMATED GFR > 60; GLUCOSE 104 mg/dL (70-104); GOT 12 U/L (10-34); GPT 9 U/L (10-44); SODIUM 143 mmol/L (136-145); TCO2 20 mmol/L (25-35); TOTAL BILIRUBIN 0.56 mg/dL (0.20-1.00); TOTAL PROTEIN 5.6 g/dL (6.3-8.3)
[2018-08-26 08:11] LABS: ANISOCYTOSIS 1+; BANDS 8 % (0-1); BASO 4 % (0-1); HYPOCHROM 1+; LYMPHS 36 % (21-51); MONO 12 % (1-9); POIKILOCYTOSIS 2+; SEGS 40 % (42-75)
--- NOTE | 2018-08-26 08:16 | Diag Imaging Result Doc PS360 ---
EXAM: CT THORAX W/O CONTRAST INDICATION: pneumonia/neck mass TECHNIQUE: This exam was performed using automated exposure control, adjustment of mA or kV according to patient size, and/or use of iterative reconstruction technique. COMPARISON: None. FINDINGS: There are bilateral small to moderate-sized pleural effusions with adjacent atelectasis, mainly at the lung bases. There is subtle groundglass opacity in the right upper lobe suggesting minimal nonspecific pneumonitis or edema. There are several calcified granulomata throughout both lungs. There is cardiomegaly. There are calcified mediastinal and hilar lymph nodes indicating prior granulomatous disease. There are other small shotty nonspecific mediastinal lymph nodes. There is extensive coronary artery calcification. A pacemaker is in place. A small lytic focus seen involving the left side of the hyoid bone on a recent soft tissue neck CT is noted. There is nothing to suggest bony metastatic disease involving the visualized bony structures of the chest. Limited views of the upper abdomen reveal bilateral nephrolithiasis and renal Kristopher's plaques, which can predispose to stone formation. IMPRESSION: 1.Small to moderate-sized pleural effusions bilaterally and bilateral subsegmental atelectasis. 2.Vague patchy groundglass opacity in the right upper lobe likely representing edema or mild nonspecific pneumonitis. 3.Cardiomegaly. 4.Other incidental/nonacute findings detailed above. Electronically signed by Andre Flanagan 08/26/2018 8:14 AM
[2018-08-26] MEDS ORDERED: GRANIX SUBQ ONE (08:51)
[2018-08-26] MEDS ORDERED: LISINOPRIL PO SCH (09:00)
[2018-08-26] MEDS: LOPRESSOR PO SCH ×2 (09:08→21:27)
[2018-08-26] MEDS: ROBAXIN PO SCH ×3 (09:08→21:27)
[2018-08-26] MEDS: PROSCAR PO SCH (09:08)
[2018-08-26] MEDS: ZITHROMAX PO SCH (09:09)
--- NOTE | 2018-08-26 10:14 | HEMO/ONC CONSULTATION ---
DATE: 08/26/2018 CHIEF COMPLAINT: We were consulted for further evaluation and management of patient's multiple myeloma and new neck mass. HISTORY OF PRESENT ILLNESS: Mr. Garcia presented to the emergency department on 08/25/2018 complaining of bilateral neck pain that had been going on for the past week. The patient denies any injury or trauma. The patient says that neck pain continued to get worse. The patient denied any nausea, vomiting, diarrhea. Denies any fevers, chills. The patient says that he has had a mild nonproductive cough. The patient while in the emergency department did have a CT of the neck that showed an expansile lesion just to the left of the midline and the anterior arc of the hyoid bone. The patient was admitted at that time for further evaluation and management. Mr. Garcia is well known to us in our clinic with his multiple and MDS. He had a bone marrow biopsy in mid 2017. 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 Plasma cells involved 30 to 35 percent marrow cellularity, abnormal 13q deletion, immature hypolobated megakaryocytosis and abnormal karyotype of IQ consistent with MDS. He was started on Revlimid and Decadron in 10/16/2016. The patient has been tolerating that treatment very well, and he has been on his recommended Decadron since that time. PAST MEDICAL HISTORY: Coronary artery disease status post CABG bypass, diabetes mellitus type 2, multiple myeloma, MDS, degenerative disk disease, congestive heart failure, pulmonary arterial hypertension, pancytopenia, myelodysplastic syndrome, benign prostatic hypertrophy, neuropathy, hypertension, hyperlipidemia. PAST SURGICAL HISTORY: Back surgery, CABG, bone marrow biopsy in the past, bilateral inguinal hernia repair, skin cancer removed from his back. SOCIAL HISTORY: Quit smoking 50 years ago. Denies any alcohol, illicit drug use. FAMILY HISTORY: Lung cancer and diabetes mellitus. ALLERGIES: No known drug allergies. HOME MEDICATIONS: Proscar, lisinopril, Glucophage, Lopressor, simvastatin, Revlimid and Decadron. REVIEW OF SYSTEMS: Negative unless as mentioned in the HPI. PHYSICAL EXAM: Vital Signs: Temperature 97.5 degrees, heart rate 69, respiratory rate 18, blood pressure 140/68, satting 100 percent on room air. General: Patient is awake, lying in bed, no acute distress noted. HEENT: Anicteric. Pupils round. Mucous membranes are moist. Neck: Supple. Trachea midline. No JVD noted bilaterally. No palpable lymphadenopathy. Neck is very tender to palpation. Lungs: Bilateral breath sounds. Clear to auscultation. Cardiovascular: S1, S2. Regular rate and rhythm. Abdomen: Soft, nontender. Bowel sounds present in all quadrants. Skin: Warm, dry, and intact. Neurologic: Alert and oriented x3. No focal deficits noted. LABORATORY DATA: White cell count is 4.84, hemoglobin 11.2, hematocrit 34.6, platelets are 142. ANC is 0.73. The potassium is 4.0. BUN 16, creatinine 0.8, calcium 8.7. RADIOLOGY REPORTS: Chest CT shows mild to moderate-sized pleural effusion bilaterally and bilateral segmental atelectasis. Patchy ground-glass opacity, right upper lobe, worsening edema, mild pneumonitis, cardiomegaly. CT of the neck showed an expansile lesion just to the left of the midline and anterior arc to the hyoid bone. It appears to be benign. However, giant cell tumor cannot be ruled out. ASSESSMENT AND PLAN: 1. Multiple myeloma: The patient has tolerated the Decadron and Revlimid very well. The disease has been controlled while on it. Continue to monitor closely at this time. 2. Neutropenia: White cell count today is 1.84, ANC is 0.73, which is caused by his myelodysplastic syndrome. We will give him some Granix today. Continue to monitor counts very closely. 3. Anemia: This is multifactorial due to myelodysplastic syndrome as well as chronic renal insufficiency. Continue to monitor at this time. No need for transfusions. 4. Possible pneumonia: The patient is started on antibiotics. Continue orders per primary medical team. Dictated by KALEIGH Dominguez for Bhanu Wagner MD Patient seen and examined. Patient is well known to us. He has a history of 5q- MDS and multiple myeloma. He has been on treatment since 09/2016 with Revlimid and Decadron. This thrombocytopenia from MDS has resolved. Hemoglobin is stable. He has chronic leukopenia and neutropenia. His myeloma SPEP has decreased from 0.8 to 0.4 and has been stable now for several months. He presented with anterior upper neck pain. CT scan reveals an expansile lesion just left of the midline and anterior to the hyoid bone. ENT has been consulted. MRI could not be done due to his pacemaker. He has possible pneumonia. His neutrophil count is low. Proceed with white cell growth factor support. Bhanu Wagner M.D. cc: KALEIGH Dominguez MD [facility]
--- NOTE | 2018-08-26 15:54 | CONSULTATION ---
DATE OF CONSULTATION: 08/26/2018 HISTORY OF PRESENT ILLNESS: I was asked to see this patient regarding a hyoid lesion noted on CT scan. The patient was admitted yesterday with a complaint of bilateral neck pain, initially left than right. This was quite severe pain. It had been progressive all day. The patient is fairly asymptomatic now. Pain has resolved. No dysphagia, odynophagia. No hoarseness. He does have multiple myeloma. He has been receiving chemotherapy and dexamethasone for 2 years. No previous history of similar symptomatology. PAST MEDICAL HISTORY: Reviewed. SOCIAL HISTORY: Reviewed. FAMILY HISTORY: Reviewed. REVIEW OF SYSTEMS: Noted. PHYSICAL EXAMINATION: Constitutional: Elderly white male, no distress. HEENT: Head/face: Normal appearance. Nose: Clear anteriorly. Septum with mild deflection. Middle meatus clear. Oral cavity/pharynx: Tongue benign. Floor of mouth clear. Gingival and buccal mucosa normal. Hard and soft palate normal. Uvula midline without lesions. Oropharyngeal wall without lesions. Hypopharynx clear of lesions. No lesions noted. Neck: Ptotic submandibular glands bilaterally. No adenopathy palpable. Hyoid palpates within normal limits. No point tenderness elicited. IMPRESSION AND PLAN: This is an 83-year-old with multiple myeloma with an expansile lesion of hyoid bone. I reviewed CT with Radiology. Sclerotic border to lesion, does not appear to be new. No surrounding inflammation. No cervical lymphadenopathy. With pain this severe, initially left side and then bilaterally, it is hard to associate the pain with this lesion of the hyoid. However, I do not have a good explanation for his pain, which for the most part has resolved, nor do I have a diagnosis for his hyoid lesion. I have discussed this at length with family. This is within the bone. The only way to get pathology would be to actually excise part of the hyoid bone. Not necessarily a small undertaking in an 83-year-old with heart disease. I discussed with family if pain remains controlled I would recommend following this as an outpatient. If we see change or have increased concern or change in symptoms, I probably would refer to the head and neck clinic at [facility] for excision, but we will hope this can be avoided. I will follow with you. cc: Darnell Becerril MD
[2018-08-26] MEDS: ROCEPHIN 1 GM in NS 50 ML IV SCH (21:26)
[2018-08-26] MEDS: ZOCOR PO SCH (21:28)
--- NOTE | 2018-08-26 22:33 | PROGRESS NOTE ---
DATE: 08/26/2018 SUBJECTIVE: The patient is resting comfortably in bed. He has no complaints at this time. OBJECTIVE: Vital Signs: Temperature 125/68, heart rate 70, respirations 18, O2 saturation 98% on room air. General: This is an elderly male lying in bed, in no acute distress. Heart: S1, S2 normal. Regular rate and rhythm. Lungs: Clear to auscultation bilaterally. Abdomen: Positive bowel sounds. Soft, nontender, nondistended. Extremities: No edema, no cyanosis. Neurologic: The patient is alert and oriented x3. LABS: Reviewed. ASSESSMENT AND PLAN: 1. Expansile lesion of the hyoid bone. ENT and Oncology are following. 2. Multiple myeloma. Aware. Dr. Wagner is following. 3. MDS.Aware. 4. Coronary artery disease status post coronary artery bypass graft. Continue on the current cardiac medications. 5. Diabetes mellitus type 2. Continue with sliding scale insulin. 6. Benign prostatic hypertrophy. Continue on Proscar. 7. Neutropenia. The patient will receive Granix today. 8. Possible pneumonitis. The patient is on antibiotic therapy. 9. Bilateral nephrolithiasis. Aware. cc: Delfina Sanchez MD [facility]
[2018-08-27] MEDS: HUMALOG SUBQ SCH ×2 (06:19→14:00)
[2018-08-27 07:45] LABS: HEMATOCRIT 34.9 % (42.0-52.0); HEMOGLOBIN 11.4 g/dL (14.0-18.0); MCH 32.4 PG (27-31); MCHC 32.7 g/dL (33-37); MCV 99.1 FL (81-99); MPV 11.4 FL (7.4-10.4); RBC 3.52 XMIL (4.7-6.1); RDW 16.3 % (11.5-14.5); WBC 5.24 X1000 (4.8-10.8)
[2018-08-27 07:59] LABS: AGAP 12; BUN 15 mg/dL (8-22); CALCIUM 8.3 mg/dL (8.8-10.2); CHLORIDE 111 mmol/L (98-107); COSMO 283; CREATININE 0.8 mg/dL (0.7-1.2); ESTIMATED GFR > 60; GLUCOSE 111 mg/dL (70-104); POTASSIUM 3.6 mmol/L (3.5-5.1); SODIUM 141 mmol/L (136-145); TCO2 18 mmol/L (25-35)
[2018-08-27] MEDS: PROSCAR PO SCH (09:49)
[2018-08-27] MEDS: ROBAXIN PO SCH ×2 (09:49→13:58)
[2018-08-27] MEDS: ZITHROMAX PO SCH (09:49)
[2018-08-27] MEDS: LOPRESSOR PO SCH (09:49)
--- NOTE | 2018-08-27 11:07 | HEMO/ONC PROGRESS NOTE ---
DATE: 08/27/2018 SUBJECTIVE: Patient says neck pain has resolved at this time. Patient has no new complaints. Patient feeling better. OBJECTIVE: Vital Signs: Temperature 97.7 degrees, heart rate 64, respiratory rate 16, blood pressure 110/86, satting 99% on room air. General: Patient is awake, lying in bed, no acute distress noted. HEENT: Anicteric. Pupils PERRLA. Mucous membranes moist. Cardiovascular: S1, S2. Regular rate and rhythm. Chest: Bilateral breath sounds. Clear to auscultation. Abdomen: Soft, nontender. Bowel sounds present in all 4 quadrants. Neurologic: Alert and oriented x3. No focal deficits noted. LABORATORY DATA: White cell count 5.24, hemoglobin 10.1, hematocrit 34.9, platelets 157 potassium 3.6, BUN 15, creatinine 0.8, calcium 8.3. ASSESSMENT AND PLAN: 1. Multiple myeloma: Multiple myeloma has been very well controlled recently with Decadron and Revlimid. Continue to monitor at this time. 2. Neutropenia: White blood cell count is currently improved. Today it is up to 5.24. Continue to monitor for any fevers. Continue to monitor CBCs. 3. Anemia: Hemoglobin and hematocrit increased to 11.4 hemoglobin and hematocrit 34.9. Continue to monitor at this time. 4. Lesion at the hyoid bone: Pain in neck is resolved at this time. ENT has been consulted. Continue recommendations per the patient's primary medical team and ENT. 5. Possible pneumonia: Continue antibiotics ordered by primary medical team. Plan of care discussed with Dr. Wagner. Dictated by KALEIGH Dominguez for Bhanu Wagner MD cc: KALEIGH Dominguez MD [facility]
[2018-08-27 15:31] VITALS: BP 110/66
--- NOTE | 2018-08-29 11:05 | DISCHARGE SUMMARY ---
ADMISSION DATE: 08/25/2018 DISCHARGE DATE: 08/27/2018 FINAL DISCHARGE DIAGNOSES: 1. Expansile lesion of the hyoid bone. 2. Multiple myeloma. 3. Myelodysplastic syndrome. 4. Colon artery disease status post coronary artery bypass graft. 5. Diabetes mellitus type 2. 6. Benign prostatic hypertrophy. 7. Bilateral nephrolithiasis. CONSULTATIONS: 1. ENT consultation with Dr. Becerril. 2. Oncology consultation with Dr. Wagner. IMAGIN. CT of the neck performed on 08/25/2018 revealed an expansile lesion to the left of the midline of the hyoid bone, bilateral pleural effusions and pulmonary edema. 2. CT of the chest which revealed [id number] sized pleural effusions as well as pulmonary edema or pneumonitis. HOSPITAL COURSE: Mr. Garcia is an 83-year-old male with a history of MDS and multiple myeloma under the care of Dr. Wagner, who presented to the ER with a chief complaint of right-sided neck pain. On admission, a CT of the neck was done that revealed a lesion that was adjacent to the hyoid bone. The patient was admitted to the hospitalist service and Oncology and ENT were consulted. The patient was assessed by Dr. Becerril who stated that the patient would need for the lesion to be excised for a true diagnosis. This was discussed with the patient's family who opted not to go that route. It was recommended that the patient follow up as an outpatient to discuss this further. The patient was initially treated with antibiotics for possible pneumonitis. However, the patient was noted to be afebrile with a normal white count and it was thought that since the patient was not having any active symptoms of infection, the antibiotic therapy was no longer justified. The patient was seen by physical therapy and ultimately it was recommended that the patient should continue with outpatient physical therapy to increase his mobility and strength. The patient was ultimately cleared for discharge home on 08/27/2018. DISCHARGE MEDICATIONS: 1. Tramadol 50 mg oral every 6 hours p.r.n. for pain. 2. Simvastatin 20 mg p.o. at bedtime. 3. Metformin 500 mg oral twice a day. 4. Lisinopril 1 tab oral daily. 5. Proscar 5 mg p.o. daily. 6. Lopressor 12.5 mg oral twice a day. DISCHARGE DIET: 1800 ADA diet. ACTIVITY: As tolerated. FOLLOWUP INSTRUCTIONS: The patient will need to follow up with Dr. Wagner as scheduled by his clinic. cc: Delfina Sanchez MD
== END 2018-08-27 15:55 | disposition home health service (06) | DRG 565 ==
LOC: ED 13:42 → SUATTDRO 20:52 → EDIPHOLD 20:52 → 3N 22:34
PROVIDERS: ATTEND Internal Medicine
CPT/HCPCS: 70491; 71020; 71046; 71250; 80048; 80053; 82948; 84145; 84439; 84443; 85025; 85027; 86140; 86308; 87040; 94761; 94799; 96365; 97110; 97162; 99285; A9270; J0696; J1446; J1447; J1815; J2270; Q9967; S0138; XXXXX

== ENCOUNTER 2018-12-03 13:44 | Inpatient (IN) ==
--- NOTE | 2018-12-03 14:37 | EKG Report ---
Test Performed on : 12/03/2018 1:59:37 PM Test Reason : ams Blood Pressure : / mmHG Vent. Rate : 072 BPM Atrial Rate : 072 BPM P-R Int : 212 ms QRS Dur : 178 ms QT Int : 480 ms P-R-T Axes : 000 -57 081 degrees QTc Int : 525 ms Atrial-paced rhythm with prolonged AV conduction Left axis deviation Left bundle branch block Abnormal ECG When compared with ECG of 04-APR-2017 14:15, Electronic atrial pacemaker has replaced Sinus rhythm. Vent. rate has increased BY 25 BPM Unconfirmed Result
[2018-12-03 14:54] LABS: HEMATOCRIT 30.9 % (42.0-52.0); HEMOGLOBIN 10.1 g/dL (14.0-18.0); LYMPH% 23.8 % (20.5-51.1); MCH 32.6 PG (27-31); MCHC 32.7 g/dL (33-37); MCV 99.7 FL (81-99); MONO# 0.15 X1000 (0.11-0.59); MPV 12.3 FL (7.4-10.4); NEUT# 1.77 X1000 (1.4-6.5); NEUT% 70.2 % (42.2-75.2); PLT 105 X1000 (130-400); RDW 15.1 % (11.5-14.5); WBC 2.52 X1000 (4.8-10.8)
[2018-12-03 15:01] LABS: INR 1.06; PROTIME 13.9 Seconds (11.0-16.0)
[2018-12-03 15:07] LABS: ALLEN TEST YES; BE -3.7 mmoll (-3.0-3.0); BLOOD TYPE ARTERIAL; METHB 1.1 % (0.0-1.5); O2(CT) 15.8 mL/dL (15.0-23.0); O2HB 96.3 % (95.0-99.0); PCO2(98.6) 34 mmHg (35-45); PO2(98.6) 99 mmHg (60-100); SAMPLE BLOOD; SAO2 98.5 % (95.0-100.0); THB 11.6 g/dL (11.5-17.4); pH(98.6) 7.39 (7.35-7.45)
[2018-12-03 15:08] LABS: MODALITY ROOM AIR
--- NOTE | 2018-12-03 15:11 | Diag Imaging Result Doc PS360 ---
EXAM: CHEST-PORTABLE 12/03/2018 HISTORY: Weight gain, SOB TECHNIQUE: AP portable at 1438 COMMENT: There is cardiomegaly. There is mildly increased interstitial markings. The pleural effusion which was present on 08/25/2018 on the left has resolved. IMPRESSION: Minimal interstitial pulmonary edema versus fibrosis. Cardiomegaly. Electronically signed by Derek Serrano 12/03/2018 3:09 PM
[2018-12-03 15:36] LABS: AGAP 16; ALB/GLOB RATIO 2.4; ALKALINE PHOSPHATASE 58 U/L (32-122); BUN 21 mg/dL (8-22); CALCIUM 8.9 mg/dL (8.8-10.2); CHLORIDE 104 mmol/L (98-107); CK PROFILE 61 U/L (24-204); COSMO 284; CREATININE 0.8 mg/dL (0.7-1.2); ESTIMATED GFR > 60; GLUCOSE 190 mg/dL (70-104); GOT 18 U/L (10-34); GPT 16 U/L (10-44); MAGNESIUM 1.3 mg/dL (1.5-2.7); POTASSIUM 5.1 mmol/L (3.5-5.1); SODIUM 138 mmol/L (136-145); TCO2 18 mmol/L (25-35); TOTAL BILIRUBIN 0.54 mg/dL (0.20-1.00); TOTAL PROTEIN 5.7 g/dL (6.3-8.3)
[2018-12-03] MEDS ORDERED: LASIX IV ONE (15:39)
[2018-12-03] MEDS ORDERED: NITROGLYCERIN TOP ONE (15:57)
[2018-12-03] MEDS ORDERED: ASPIRIN PO ONE (15:57)
--- NOTE | 2018-12-03 16:00 | PROVIDER DOCUMENTATION ---
This chart was entered by Shi Sanchez Scribe, acting as scribe for Gonzalo Yanez MD. HPI-General Adult - General Chief Complaint: B/P Problems Stated Complaint: LOW BP Time Seen by Provider: 12/03/18 14:00 Source: patient, family Allergies/Adverse Reactions: Patient Allergies Allergy/AdvReac Type Severity Reaction Status Date / Time No Known Allergies Allergy Verified 04/04/17 13:17 Home Medications: Home Medication List Medication Instructions Recorded Confirmed Last Taken Type Metformin [Glucophage] 500 mg PO BID AC 08/13/16 08/25/18 11/02/16 History Simvastatin 20 mg PO HS 08/13/16 08/25/18 11/02/16 History Lisinopril 1 tab PO DAILY 03/03/17 08/25/18 03/03/17 13:00 History Finasteride [Proscar] 5 mg PO DAILY 04/04/17 08/25/18 Unknown History Metoprolol [Lopressor] 0.5 tab PO BID 04/04/17 08/25/18 Unknown History Tramadol [Ultram] 50 mg PO Q6H PRN PRN #30 tab 08/27/18 Unknown Rx - History of Present Illness -Gen Adult Nature of Presenting Problems: 83 y/o male presents to ED with hypotension and weakness onset yesterday. Pt reports his home health nurse came yesterday and wanted him to see PCP today due to his symptoms. Pt states PCP referred him to ED because his blood pressure was 60/40 in the office. Family of pt is at bedside and reports he has been falling recently. Pt complains of diarrhea for the past 3 years and a productive coughh for the past 4 years. Pt has hx multiple myeloma and is currently on chemo. Pt also complains of SOB. Pt is alert and oriented. Location of Pain/Injury: reports: none Pain Radiation: reports: no radiation Quality of Pain: reports: none Severity: reports: mild Onset/Duration: reports: 24 hours ago, other (3-4 years ago) Timing: reports: still present Context/Activities at Onset: reports: none Modifying Factors: improves with: nothing Associated Symptoms: reports: cough (productive), diarrhea, shortness of breath, weakness, other (recent falls; hypotension) Similar Symptoms Previously?: No Recently seen or treated by another doctor?: Yes Review of Systems - Adult - REVIEW OF SYSTEMS - ADULT Constitutional: reports: other (hypotension; recent falls). denies: chills, fever Eyes: reports: no symptoms reported Ears, Nose, Mouth & Throat: reports: no symptoms reported Cardiovascular: reports: other (hypotension). denies: chest pain, palpitations Respiratory: reports: cough (productive), shortness of breath Gastrointestinal: reports: diarrhea. denies: abdominal pain, nausea, vomiting Genitourinary: reports: no symptoms reported Musculoskeletal: denies: back pain, joint pain Integumentary: reports: no symptoms reported Neurological: reports: other (weakness). denies: dizziness/vertigo, seizure Psychiatric: reports: no symptoms reported Endocrine: reports: no symptoms reported Hematologic/Lymphatic: reports: no symptoms reported Allergic/Immunologic: reports: no symptoms reported All Other Systems: Reviewed and Negative Past History - Adult - PAST MEDICAL HISTORY-ADULT Review of Records: reports: Old Records Reviewed, Nursing Assessment Review, Medications Reviewed Major Childhood Illnesses: reports: denies history Cardiovascular: reports: CAD, HTN, hyperlipidemia, pacemaker Respiratory: reports: denies history Gastrointestinal: reports: denies history Genitourinary: reports: denies history Musculoskeletal: reports: arthritis, cancer (MULTIPLE MYELOMA) Neurological: reports: dementia Psychiatric: reports: denies history Endocrine/Immune: reports: Diabetes Other Conditions: reports: other cancer (MDS; myeloma) - PRIOR SURGERIES/PROCEDURES Surgical/Procedure History: reports: CABG, hernia repair, back/neck - IMMUNIZATION STATUS Childhood Immunizations: See Nurse Assessment Flu Vaccine: See Nurse Assessment - FAMILY HISTORY Family History: reviewed, not pertinent - SOCIAL HISTORY Smoking: quit greater than 1 year Substance Use: none/never Alcohol Use Frequency: never Living Situation: family Physical Exam-General - PHYSICAL EXAM-ADULT Initial Vital Signs Reviewed: Yes - CONSTITUTIONAL General Appearance: appears well, alert, no apparent distress - EYES Eyes: PERRL/EOMI, pink conjunctivae - HEAD, EARS, NOSE, MOUTH & THROAT HENMT: normocephalic/atraumatic. negative: moist mucous membranes (dry) - RESPIRATORY Respiratory: chest non-tender, lungs clear, normal breath sounds - CARDIOVASCULAR Cardiovascular: regular rate, rhythm, other (frequenct ectopic beats) - GASTROINTESTINAL (ABDOMEN) Abdominal Exam: normal bowel sounds, non tender, soft - MUSCULOSKELETAL Back Exam: normal inspection, no CVA tenderness, no vertebral tenderness Extremity: normal range of motion, non-tender, swelling (2 + pitting edema of bilateral lower extremities) - SKIN Integumentary: warm/dry, pallor, swelling (2 + pitting edema of bilateral lower extremities) - NEUROLOGIC Neurologic: grossly normal - PSYCHIATRIC Psych/Mental Status: normal mood/affect, normal thought content, normal thought process, oriented x 3 Progress - PLAN OF CARE/RESULTS Progress/Plan/Lab Results: Vital Signs - 8 hr 12/03/18 13:46 Temperature 97.5 F L Pulse Rate 78 Respiratory Rate 18 Blood Pressure 107/68 O2 Sat by Pulse Oximetry 97 Orders Category Date Time Status Finger Stick Blood Sugar (ED) DIRECTED Care 12/03/18 14:30 Active Nursing- Obtain EKG once Care 12/03/18 14:30 Active Saline Loc NOW Care 12/03/18 14:30 Active CHEST-PORTABLE [RAD] Stat Exams 12/03/18 14:31 Taken ABG [RESP] Routine Lab 12/03/18 14:30 Ordered BLOOD CULTURE [BLDCUL] Stat Lab 12/03/18 14:35 Ordered CBC WITH ELECTRONIC DIFF [HEME] Stat Lab 12/03/18 14:35 Results CK PROFILE [SP CHEM] Stat Lab 12/03/18 14:35 Received COMPREHENSIVE METABOLIC PANEL [CHEM] Stat Lab 12/03/18 14:35 Received LACTATE, PLASMA [CHEM] Stat Lab 12/03/18 14:35 Received MAGNESIUM [CHEM] Stat Lab 12/03/18 14:35 Received PRO B-NATRIURETIC PEPTIDE Stat Lab 12/03/18 14:35 Received PROLACTIN [HH] Stat Lab 12/03/18 14:43 Ordered PROTIME WITH INR [COAG] Stat Lab 12/03/18 14:35 Received TROPONIN T Stat Lab 12/03/18 14:35 Received TSH Stat Lab 12/03/18 14:35 Received URINALYSIS W/POSS RFLX CULT [URINALYSIS] Stat Lab 12/03/18 14:31 Uncollected EKG [EKG] Stat Ther 12/03/18 14:30 Draft Laboratory Tests 12/03/18 12/03/18 12/03/18 14:35 14:35 14:35 WBC 2.52 L RBC 3.10 L Hgb 10.1 L Hct 30.9 L MCV 99.7 H MCH 32.6 H MCHC 32.7 L RDW Std Deviation 15.1 H Plt Count 105 L MPV 12.3 H Immature Gran % (Auto) 0.0 Neut % (Auto) 70.2 Lymph % (Auto) 23.8 [place] % (Auto) 6.0 Eos % (Auto) 0.0 Baso % (Auto) 0.0 Immature Gran # (Auto) 0.00 Neut # (Auto) 1.77 Lymph # (Auto) 0.60 L [place] # (Auto) 0.15 Eos # (Auto) 0.00 Baso # (Auto) 0.00 PT INR Specimen Type Sample Site pH pCO2 pO2 HCO3 Base Excess Oxyhemoglobin ABG O2 Sat (Calculated) ABG O2 Saturation ABG Carboxyhemoglobin ABG Methemoglobin Abdifatah Test A-a O2 Difference Total Hemoglobin Lactate Blood Gas Modality FiO2 % Sodium 138 Potassium 5.1 Chloride 104 Carbon Dioxide 18 L Anion Gap 16 BUN 21 Creatinine 0.8 Estimated GFR/1.73 m2 > 60 BUN/Creatinine Ratio 26 Glucose 190 H Calculated Osmolality 284 Calcium 8.9 Magnesium 1.3 L Total Bilirubin 0.54 AST 18 ALT 16 Alkaline Phosphatase 58 Creatine Kinase 61 Troponin T [id number] Pept Total Protein 5.7 L Albumin 4.0 Globulin 1.7 Albumin/Globulin Ratio 2.4 Plasma Lactate TSH 1.66 12/03/18 12/03/18 12/03/18 14:35 14:35 14:35 WBC RBC Hgb Hct MCV MCH MCHC RDW Std Deviation Plt Count MPV Immature Gran % (Auto) Neut % (Auto) Lymph % (Auto) [place] % (Auto) Eos % (Auto) Baso % (Auto) Immature Gran # (Auto) Neut # (Auto) Lymph # (Auto) [place] # (Auto) Eos # (Auto) Baso # (Auto) PT 13.9 INR 1.06 Specimen Type Sample Site pH pCO2 pO2 HCO3 Base Excess Oxyhemoglobin ABG O2 Sat (Calculated) ABG O2 Saturation ABG Carboxyhemoglobin ABG Methemoglobin Abdifatah Test A-a O2 Difference Total Hemoglobin Lactate Blood Gas Modality FiO2 % Sodium Potassium Chloride Carbon Dioxide Anion Gap BUN Creatinine Estimated GFR/1.73 m2 BUN/Creatinine Ratio Glucose Calculated Osmolality Calcium Magnesium Total Bilirubin AST ALT Alkaline Phosphatase Creatine Kinase Troponin T [id number]-Glgoxhgxrhu Pept 85195 H Total Protein Albumin Globulin Albumin/Globulin Ratio Plasma Lactate 2.7 H TSH 12/03/18 12/03/18 14:35 15:00 WBC RBC Hgb Hct MCV MCH MCHC RDW Std Deviation Plt Count MPV Immature Gran % (Auto) Neut % (Auto) Lymph % (Auto) [place] % (Auto) Eos % (Auto) Baso % (Auto) Immature Gran # (Auto) Neut # (Auto) Lymph # (Auto) [place] # (Auto) Eos # (Auto) Baso # (Auto) PT INR Specimen Type ARTERIAL Sample Site R RADIAL pH 7.39 pCO2 34 L pO2 99 HCO3 22.0 Base Excess -3.7 L Oxyhemoglobin 96.3 ABG O2 Sat (Calculated) 15.8 ABG O2 Saturation 98.5 ABG Carboxyhemoglobin 1.10 ABG Methemoglobin 1.1 Abdifatah Test YES A-a O2 Difference 8.0 Total Hemoglobin 11.6 Lactate 3.00 H Blood Gas Modality ROOM AIR FiO2 % 21.0 Sodium Potassium Chloride Carbon Dioxide Anion Gap BUN Creatinine Estimated GFR/1.73 m2 BUN/Creatinine Ratio Glucose Calculated Osmolality Calcium Magnesium Total Bilirubin AST ALT Alkaline Phosphatase Creatine Kinase Troponin T < 0.010 Oqm-J-Tfxrbwbwejh Pept Total Protein Albumin Globulin Albumin/Globulin Ratio Plasma Lactate TSH Result Diagrams: 12/03/18 14:35 12/03/18 14:35 - REASSESSMENT Reassessment #1 Time Reassessed: 15:59 Status: improving (Given ASA, NTP, Lasix) - EKG 1 Time of EKG reading by physician:: 14:27 EKG Read and Signed by:: Gonzalo Yanez EKG Interpretation (*Must complete 3 of following elements*): Abnormal Rate: 72 Rhythm: NSR [place]: normal QRS: LBB MN Interval: prolonged ST Wave: normal Prior EKG Comparison: unchanged from prior (04/04/17) Comments: LAD. -Dr. Yanez - XRAY 1 XRAY Study: Chest Impression: See EMR Report - CONSULTS/PCP/HOSPITALIST Notification #1 *Consult/PCP/Hospitalist*: Dr. Elizabeth Manzanares Time Discussed: 14:24 Reason/Comments: ED referral Consult Disposition: other (Dr. Manzanares is PCP of the pt and she referred him to ED. She reports his recent echocardiogram showed EF of 25% and his family told her he had been short of breath and had a weight gain of 7 pounds. She wanted pt to be admitted for CHF exacerbation. Dr. Manzanares states she called the [facility], who told her to send him through the ED. She states Dr. Richmond was made aware.) #2 Consult: KALEIGH Norwood for hospitalist Time Discussed: 15:46 Reason/Comments: CHF exacerbation Consult Disposition: Admit #3 Consult: Dr. Zhang Time Discussed: 16:00 Reason/Comments: CHF exacerbation Consult Disposition: Admit, other (will see in ED) Departure - Departure Date of Disposition Decision: 12/03/18 Time of Disposition Decision: 15:46 DIAGNOSIS: CHF exacerbation Qualifiers: Heart failure type: unspecified Qualified Code(s): I50.9 - Heart failure, unspecified Pulmonary edema Qualifiers: Chronicity: acute Qualified Code(s): J81.0 - Acute pulmonary edema Disposition: ADMITTED INPATIENT 09 Certified Medical Emergency: Emergent Condition: Stable Referrals and Follow-Ups: Lela Manzanares MD [Primary Care Provider] - - Critical Care Note This patient required my direct & personal management of CC.: No Attestation - Physician/ RYAN Attestation Patient care was provided by Advanced Practice Provider:: No The physician spent face to face time with patient:: Yes Advanced Practice Provider documentation review:: Supervising physician onsite and consulted in the evaluation and care of this patient. The physician did have a face to face encounter with the patient. This chart was documented by the indicated scribe, (Shi Sanchez, Scrtomer) and accurately reflects the services I performed and decisions made by me, Gonzalo Yanez MD, as attested by the provider's signature.
[2018-12-03 16:01] LABS: URINE SOURCE CLEAN CATCH
[2018-12-03 16:03] LABS: BILIRUBIN URINE NEGATIVE (NEGATIVE); BLOOD URINE NEGATIVE (NEGATIVE); COLOR YELLOW; GLUCOSE URINE >1000 mg/dL (NEGATIVE); KETONE URINE TRACE mg/dL (NEGATIVE); LEUKOCYTES URINE NEGATIVE (NEGATIVE); NITRITE URINE NEGATIVE (NEGATIVE); PH URINE 6.5; PROTEIN URINE TRACE mg/dL (NEGATIVE); TURBIDITY URINE CLEAR (CLEAR); UROBILINOGEN URINE NORMAL (NORMAL)
[2018-12-03] MEDS ORDERED: MAGNESIUM SULFATE 2 GM/S.W.I. 2 GM/50 ML IVPB IV ONE (16:03)
[2018-12-03 16:05] LABS: UR EPITHELIAL CELLS <10 /HPF (<10); URINE BACTERIA NEGATIVE /HPF; URINE RBC <10 /HPF (<10); URINE WBC <10 /HPF (<10)
[2018-12-03] MEDS ORDERED: LASIX IV SCH (16:45)
[2018-12-03] MEDS ORDERED: MAXIPIME 1 GM in NS 50 ML IV SCH (19:15)
--- NOTE | 2018-12-03 19:20 | HISTORY AND PHYSICAL ---
PRIMARY CARE PHYSICIAN: Dr. Lela Manzanares. CHIEF COMPLAINT: Weight gain and weakness. HISTORY OF PRESENT ILLNESS: This is an 83-year-old gentleman who presented to the emergency room from Dr. Lela Manzanares's office. According to Dr. Manzanares, the patient was orthostatic, having a blood pressure of 60/40 standing while in her office. The patient has dementia. He is unable to give history or answer many of the questions. Family is at the bedside and answers are taken from them and the report from Dr. Lela Manzanares. The family states the patient has been falling quite frequently over the last month or so, although he is unable to describe what makes him fall. The patient did state that he has had diarrhea for 3 years and a productive cough from 4 years. He stated that he came to the ER because "they told me to come and spend a few nights here." PAST MEDICAL HISTORY: 1. Myeloma, MDS. The patient is on oral chemo. 2. Bradycardia with pacemaker. 3. Dementia. 4. Diabetes mellitus. 5. Hypertension. PAST SURGICAL HISTORY: Coronary artery bypass graft, hernia repair, back surgery. SOCIAL HISTORY: The family denies any alcohol, tobacco, or illicit drug use. ALLERGIES: No known drug allergies. HOME MEDICATIONS: A list will be obtained by the nursing staff and once verified, we will review and will restart as appropriate. REVIEW OF SYSTEMS: Unable to obtain from the patient. PHYSICAL EXAMINATION: GENERAL: This is an 83-year-old gentleman who is sitting up in the bed in no distress. VITAL SIGNS: Blood pressure is 109/89 with a heart rate of 93, respirations are 18, temperature is 97.5 degrees oral with room air saturations 92 to 98 percent. EYES: Pupils are equal, round, react to light EOMs are intact sclerae are anicteric. HEENT: Head is normocephalic, atraumatic. Mucous membranes are moist. NECK: Supple with trachea midline. CARDIOVASCULAR: Regular rate and rhythm. S1 and S2 appreciated. Calves are nontender. EXTREMITIES: Peripheral pulses are palpable x4 extremities. He does have bilateral lower extremity edema. PULMONARY: Breath sounds are clear. No increased work of breathing noted. GASTROINTESTINAL: Abdomen is soft, nontender, nondistended with bowel sounds in all 4 quadrants. SKIN: Warm and dry. NEUROLOGIC: He is alert. He is oriented to himself and family members. He does know that he is at the hospital. LABS: WBC is 2.5 with hemoglobin 10.1, hematocrit 30.9, and platelets of 105,000. Sodium is 138, potassium 5.1, BUN 21, creatinine 0.8 with a glucose of 190. Magnesium is 1.3. Troponin is less than 0.010, with a proBNP of 13,373. TSH is 1.66. Urinalysis is essentially negative. Blood cultures are pending. Chest x-ray reveals interstitial pulmonary edema versus fibrosis with cardiomegaly. ASSESSMENT AND PLAN: 1. Congestive heart failure. The patient had an echocardiogram on 11/19/2018. At that time, he was found to have an ejection fraction of 25%. Previous echocardiogram of March 2017 revealed an ejection fraction of 40%. 2. Pulmonary edema. 3. Hypomagnesemia. 4. Dementia. 5. Diabetes mellitus. 6. Hypertension. 7. Myelodysplastic syndrome. Currently on oral chemo. 8. Status post pacemaker, although the patient is unable to tell us why at this time. PLAN: The patient will be admitted to the hospital. placed on telemetry. place on fall precautions. orthostatics every 12 hours. pattern blood glucose with sliding scale insulin. CBC, CMP and magnesium in the morning. Lasix 40 b.i.d. x2 doses. input and output with daily weights. Check TSH. update his home medications and once verified, we will review and restart as appropriate. For deep vein thrombosis prophylaxis will use sequential compression devices. We will hold off on any anticoagulation as the patient has been following. consult Physical Therapy for evaluation. Plan discussed with Dr Nina. Further treatments pending hospital course. Dictated by KALEIGH Worthy for Felix Nina MD cc: KALEIGH Worthy MD [facility]
--- NOTE | 2018-12-03 20:26 | CARDIOLOGY CONSULTATION ---
DATE: 12/03/2018 SUBJECTIVE: Mr. Block is a difficult historian. He has some baseline dementia. He was at Dr. Lela Manzanares's office today and apparently had some low blood pressure and some diffuse complaints of fatigue that sounds like it had been going on for several days. Family is interested in getting him, it sounds like, into some sort of long-term care. He denies any overt orthopnea. He is not having any chest pain. The patient does have some issues with dyspnea on exertion, but it sounds like this is something that he has had for quite some time, and he has very limited activity. PAST MEDICAL HISTORY: 1. Significant for coronary artery disease with bypass grafting performed in 2000 that was a EL to the LAD. His last stress test was in 2014 showing a small mild-intensity defect in the anterior apical and apical portion. Ejection fraction on that study was 38%. His last echo was performed in October 2018 demonstrating an EF of 25%, mild TR mild LVH and mild MR. 2. Permanent pacemaker implant with sick sinus syndrome. 3. Hypertension. 4. Hyperlipidemia. 5. Diabetes. 6. Multiple myeloma. 7. Dementia. SOCIAL HISTORY: He quit smoking 50 years ago. He is . Lives with his . FAMILY HISTORY: Daughter with a history of lung cancer. Two grandchildren with diabetes. REVIEW OF SYSTEMS: A 10-system review of systems is negative except for those things mentioned in HPI. PHYSICAL EXAMINATION: Vital Signs: He is afebrile. His heart rate is 93, blood pressure 118/68. General: No acute distress. HEENT: Oropharynx is moist. Poor dentition. Eye examination shows pink conjunctivae. White sclerae. Neck: Examination shows no obvious thyromegaly or thyroid tenderness. Cardiovascular: He sounds to be in a regular rate and rhythm. He has no murmurs. He has no S3. He has no lower extremity edema. He has warm and well-perfused extremities. Chest: Has some mild rales in the bilateral bases. No increased work of breathing. Abdomen: Soft, nontender. PERTINENT DATA: His EKG shows what appears to be an atrial paced rhythm with a left bundle branch block. He had chest x-ray that demonstrated mild interstitial pulmonary edema versus fibrosis His lab data shows a white count of 2.5, hematocrit of 30 ,platelet count of 10. His sodium is 138, potassium 5.1, BUN 21, creatinine 0.8. ProBNP is 13,000. On October 27 [place] proBNP [place] [address]01. ASSESSMENT: Mr. Block is an 83-year-old gentleman with ischemic cardiomyopathy. He has had widely fluctuating ejection fractions. The most recent ones have been in the 25 to 30 percent range. PLAN: We will titrate medications as possible. He is on lisinopril and metoprolol. He has been administered some diuretics initially. We will tentatively try to diurese the patient and work on potential placement if family deems necessary. cc: Rupert hZang MD
--- NOTE | 2018-12-03 20:48 | HISTORY AND PHYSICAL ---
ADDENDUM: SUBJECTIVE: I have seen and examined Mr. Garcia today. Mr. Garcia apparently presented to the emergency department because of generalized weakness, sensation of wanting to fall down and muscle jerks. Upon presenting to the emergency department, at some point he was found to be hypotensive with a blood pressure of 88/32. From the history, it appears that Mr. Garcia was seen by his primary care physician in the office. It was documented that he had a blood pressure of 60/40. PHYSICAL EXAMINATION: GENERAL: He looks slightly pale. EXTREMITIES: He has some mild edema in the lower extremities. CHEST: Patient has some crackles in both lungs. There is also a pacemaker generator on the left anterior chest wall. LABORATORY DATA: I have reviewed his labs as well. He has pancytopenia with macrocytosis. CHEMISTRY: Shows a bicarb of 18 and plasma lactate of 2.7. He has proBNP of 13,373. This is slightly just better than what we had from last month. His a chest x-ray has also been reviewed, which seems to suggest minimal interstitial pulmonary edema versus fibrosis. ASSESSMENT: 1. Hypotension of unclear etiology. The patient has a mildly elevated lactate. This could be either from a cardiogenic shock versus possible septic shock. The patient got some diuretics. He made some good urine. We will get blood cultures as well, and I will start the patient on IV cefepime until we have a culture negative, since we know he is immunocompromised. The patient also has been on Decadron as well, so will have to probably go up on his steroid demand since it is very possible he has gone into transient adrenal insufficiency. 2. Congestive heart failure with ejection fraction of 20% to 25% with global hypokinesis on an echo done on 11/19/2018 . It is very possible Mr. Garcia could be in mild exacerbation. We will continue with the diuretic therapy. Will also continue with his home medications if the blood pressure will tolerate. 3. History of multiple myeloma with myelodysplastic syndrome. 4. Electrolyte abnormality including hypomagnesemia. This will be replaced. 5. Mild [id number] metabolic acidosis secondary to lactic acidosis. Unsure if this is infectious driven or it is hypoperfusion from poor cardiac output. We will try to optimize both parameters for now. 6. Generalized weakness and deconditioning. We will consult physical therapy. Please refer to the details of the H P which has been dictated by the INFORMATION OPERATOR in the chart. cc: Felix Nina MD Critical time spent 1 hour MTDD
[2018-12-04] MEDS: HUMALOG SUBQ SCH ×5 (00:25→22:12)
[2018-12-04] MEDS ORDERED: LASIX IV SCH (04:00)
[2018-12-04] MEDS ORDERED: SOLU-CORTEF IV ONE (05:43)
[2018-12-04] MEDS: MAXIPIME 1 GM in NS 50 ML IV SCH ×2 (06:41→18:55)
[2018-12-04 08:36] LABS: EOS# 0.01 X1000 (0.0-0.7); EOS% 0.4 % (0.0-10.0); HEMATOCRIT 33.2 % (42.0-52.0); HEMOGLOBIN 11.1 g/dL (14.0-18.0); LYMPH# 0.67 X1000 (1.2-3.4); LYMPH% 28.9 % (20.5-51.1); MCHC 33.4 g/dL (33-37); MCV 98.8 FL (81-99); MONO# 0.22 X1000 (0.11-0.59); MONO% 9.5 % (1.7-9.3); NEUT# 1.42 X1000 (1.4-6.5); NEUT% 61.2 % (42.2-75.2); PLT 121 X1000 (130-400); RBC 3.36 XMIL (4.7-6.1); RDW 14.9 % (11.5-14.5); WBC 2.32 X1000 (4.8-10.8)
[2018-12-04 08:58] LABS: AGAP 13; ALB/GLOB RATIO 2.2; ALBUMIN 4.4 g/dL (3.5-5.0); ALKALINE PHOSPHATASE 58 U/L (32-122); BUN 23 mg/dL (8-22); CALCIUM 9.5 mg/dL (8.8-10.2); CHLORIDE 100 mmol/L (98-107); COSMO 284; CREATININE 0.9 mg/dL (0.7-1.2); ESTIMATED GFR > 60; GLUCOSE 150 mg/dL (70-104); GOT 16 U/L (10-34); GPT 17 U/L (10-44); MAGNESIUM 1.4 mg/dL (1.5-2.7); POTASSIUM 3.2 mmol/L (3.5-5.1); SODIUM 139 mmol/L (136-145); TCO2 26 mmol/L (25-35); TOTAL BILIRUBIN 0.82 mg/dL (0.20-1.00); TOTAL PROTEIN 6.4 g/dL (6.3-8.3)
[2018-12-04] MEDS: VALTREX PO SCH (09:06)
[2018-12-04] MEDS: THERA M PLUS PO SCH (09:06)
[2018-12-04] MEDS: FERROUS SULFATE PO SCH (09:06)
[2018-12-04] MEDS ORDERED: MAGNESIUM SULFATE 2 GM/S.W.I. 2 GM/50 ML IVPB IV ONE (15:53)
[2018-12-04] MEDS ORDERED: POTASSIUM CHLORIDE 20% LIQUID PO ONE (15:53)
--- NOTE | 2018-12-04 16:35 | PROGRESS NOTE ---
DATE: 12/04/2018 SUBJECTIVE: This morning Mr. Garcia refers to be doing a whole lot better. and brother were at the bedside at the time of the encounter. OBJECTIVE: Vitals: Blood pressure is 126/69, pulse of 68, respiration is 22, temperature 97.5 degrees. On general exam, Mr. Garcia is an 83-year-old elderly male. He is in bed, no distress. Mucosa is pink and moist. Anicteric. Acyanotic. Neck is supple. Chest: Good air entry bilaterally. A few crackles posteriorly. Cardiovascular: Regular rate and rhythm. Abdomen: Soft, nontender. Extremities: No pedal edema. Central Nervous System: Patient is awake, alert, and oriented. LABORATORY DATA: WBC is 2.32, hemoglobin is 11.1, platelet count of 121,000. Chemistry is also reviewed and is unremarkable, potassium is 3.2. ASSESSMENT: 1. Hypotension on presentation, presumably multifactorial in etiology. The patient blood pressure is now a lot better. 2. Congestive heart failure with ejection fraction of 20% to 25% with global hypokinesis. The patient was on IV diuretic therapy. We will transition this to oral. 3. History of multiple myeloma with myelodysplastic syndrome. The patient follows up with Dr. Wagner. 4. Electrolyte abnormality, including hypomagnesemia. This has been replaced. 5. Generalized weakness and deconditioning. 6. Orthostatic hypotension associated with cardioinhibitory response We think this was all related to medication side effects lisinopril and metoprolol were all withheld. He is doing a whole lot better now. We are going to introduce his beta-cony today, and hopefully if his blood pressure continues to be stable, we can restart his lisinopril at a lower dose. cc: Felix Nina MD [facility] [place]
[2018-12-04] MEDS ORDERED: HALDOL IM ONE (18:03)
--- NOTE | 2018-12-04 21:15 | CARDIOLOGY PROGRESS NOTE ---
DATE: 12/04/2018 SUBJECTIVE: Mr. Garcia continues to be quite confused, per his baseline. He has no complaints PHYSICAL EXAMINATION: Vital Signs: Afebrile. Heart rate 75, blood pressure 125/77. His I's and O's are somewhat limited. General: He is in no acute distress. Cardiovascular: He sounds to be in a regular rate and rhythm. He has no murmurs. There is no S3. He has warm and well perfused extremities with no edema. Chest: Sounds clear bilaterally. There is no increased work of breathing. Abdomen: Soft and nontender. PERTINENT DATA: Sodium 139, potassium 3.2, BUN 23, creatinine 0.9 with a magnesium level of 1.4. ASSESSMENT: Mr. Garcia is an 83-year-old gentleman with a history of ischemic cardiomyopathy. PLAN: Relative hypotension yesterday at his PCP's office. He was admitted and diuresed somewhat, but has had some relative low blood pressures in the last 12 hours or so. He is on oral diuretics at this time. He is on a beta-cony. I would recommend possible addition of a low-dose MICHELE or ARB in the near future. He is listed on some home Decadron. I am curious if his hypotension may have been related to lack of compliance with that medication. Family is reportedly undergoing the process of getting him some sort of long-term placement. cc: Rupert Zhang MD
[2018-12-04] MEDS: ZOCOR PO SCH (22:01)
[2018-12-04] MEDS: LASIX PO SCH (22:04)
[2018-12-04] MEDS: ASPIRIN EC PO SCH (22:05)
[2018-12-04] MEDS: LOPRESSOR PO SCH (22:10)
[2018-12-05] MEDS: MAXIPIME 1 GM in NS 50 ML IV SCH ×2 (06:10→17:15)
[2018-12-05] MEDS: HUMALOG SUBQ SCH ×4 (06:10→22:45)
[2018-12-05 08:14] LABS: BASO# 0.01 X1000 (0.0-0.2); BASO% 0.8 % (0.0-0.8); EOS# 0.06 X1000 (0.0-0.7); EOS% 4.8 % (0.0-10.0); HEMATOCRIT 33.2 % (42.0-52.0); HEMOGLOBIN 11.1 g/dL (14.0-18.0); IMM GRAN# 0.02 X1000 (0.0-0.04); IMM GRAN% 1.6 % (0.0-0.5); LYMPH# 0.45 X1000 (1.2-3.4); MCH 32.9 PG (27-31); MCHC 33.4 g/dL (33-37); MCV 98.5 FL (81-99); MONO# 0.15 X1000 (0.11-0.59); MPV 11.1 FL (7.4-10.4); NEUT# 0.56 X1000 (1.4-6.5); NEUT% 44.8 % (42.2-75.2); PLT 108 X1000 (130-400); RBC 3.37 XMIL (4.7-6.1); RDW 15.2 % (11.5-14.5); WBC 1.25 X1000 (4.8-10.8)
[2018-12-05 08:20] LABS: AGAP 10; ALBUMIN 4.1 g/dL (3.5-5.0); ALKALINE PHOSPHATASE 56 U/L (32-122); BUN 21 mg/dL (8-22); CALCIUM 9.6 mg/dL (8.8-10.2); CHLORIDE 103 mmol/L (98-107); COSMO 285; ESTIMATED GFR > 60; GLUCOSE 108 mg/dL (70-104); GOT 20 U/L (10-34); GPT 19 U/L (10-44); SODIUM 141 mmol/L (136-145); TCO2 28 mmol/L (25-35); TOTAL PROTEIN 6.2 g/dL (6.3-8.3)
[2018-12-05] MEDS: FERROUS SULFATE PO SCH (08:54)
[2018-12-05] MEDS: THERA M PLUS PO SCH (08:54)
[2018-12-05] MEDS: VALTREX PO SCH (08:55)
[2018-12-05] MEDS: LASIX PO SCH (08:55)
[2018-12-05] MEDS ORDERED: PATIENT'S OWN MED PO SCH (09:00)
--- NOTE | 2018-12-05 09:39 | Diag Imaging Result Doc PS360 ---
EXAM: CHEST-PORTABLE 12/05/2018 HISTORY: dyspnea TECHNIQUE: AP portable at 0927 COMMENT: The appearance of the chest has not changed significantly since 12/03/2018. There is still some increased interstitial opacity particularly in the left costophrenic sulcus. IMPRESSION: Stable chest. Electronically signed by Derek Serrano 12/05/2018 9:36 AM
[2018-12-05] MEDS: LOPRESSOR PO SCH ×2 (12:23→22:44)
--- NOTE | 2018-12-05 12:23 | PROGRESS NOTE ---
DATE: 12/05/2018 SUBJECTIVE: Today Mr. Garcia refers to be doing a whole lot better. He was actually sitting up in a chair at the time of the encounter. OBJECTIVE: Vital Signs: Blood pressure is 121/55, pulse of 71, respirations 16, temperature 97.3 degrees. General: Mr. Garcia is an 83-year-old elderly male. He was sitting up in a chair in no distress. HEENT: Mucosa is pink and moist. Anicteric. Acyanotic. Neck: Supple. Chest: Clear to auscultation. No crepitations. No rhonchi. Cardiovascular: Regular rate and rhythm. Gastrointestinal: Abdomen is soft. Extremities: No pedal edema. HEALTH WORKER: The patient is awake and alert. Does show some baseline cognitive decline. LABORATORY DATA: Has all been reviewed. WBC is down to 1.35, hemoglobin is 11.1, platelet count of 108,000. Chemistry is also reviewed and is completely unremarkable. The proBNP is slightly up to 21,052. ASSESSMENT: 1. Hypotension on presentation presumably medication side effects as well as poor cardiac output. 2. Congestive heart failure with an ejection fraction of 20% to 25% with global hypokinesis in mild exacerbation. The patient is on mild diuretic therapy. 3. History of multiple myeloma and myelodysplastic syndrome. Follows up with Dr. Wagner. 4. Hypomagnesemia on presentation, improved. 5. Generalized weakness and deconditioning. 6. Orthostatic hypotension, improved. DISPOSITION: We are consulting Social Work to evaluate the patient for the patient to be evaluated for rehabilitation placement due to generalized weakness and deconditioning and also congestive heart failure. cc: Felix Nina MD
[2018-12-05] MEDS: ZOCOR PO SCH (22:43)
[2018-12-05] MEDS: ASPIRIN EC PO SCH (22:45)
[2018-12-06] MEDS: MAXIPIME 1 GM in NS 50 ML IV SCH ×2 (05:09→17:04)
[2018-12-06] MEDS: HUMALOG SUBQ SCH ×4 (06:04→20:14)
[2018-12-06 06:18] LABS: URINE SOURCE CLEAN CATCH
[2018-12-06 06:20] LABS: BILIRUBIN URINE NEGATIVE (NEGATIVE); BLOOD URINE NEGATIVE (NEGATIVE); COLOR YELLOW; GLUCOSE URINE NEGATIVE (NEGATIVE); KETONE URINE NEGATIVE (NEGATIVE); LEUKOCYTES URINE NEGATIVE (NEGATIVE); NITRITE URINE NEGATIVE (NEGATIVE); PROTEIN URINE TRACE mg/dL (NEGATIVE); SP GRAVITY URINE 1.015; TURBIDITY URINE CLEAR (CLEAR); UROBILINOGEN URINE NORMAL (NORMAL)
[2018-12-06 06:21] LABS: UR EPITHELIAL CELLS <10 /HPF (<10); URINE BACTERIA NEGATIVE /HPF; URINE RBC <10 /HPF (<10); URINE WBC <10 /HPF (<10)
[2018-12-06 07:31] LABS: AGAP 10; ALB/GLOB RATIO 1.9; ALBUMIN 3.7 g/dL (3.5-5.0); ALKALINE PHOSPHATASE 56 U/L (32-122); BUN 22 mg/dL (8-22); CALCIUM 8.9 mg/dL (8.8-10.2); CHLORIDE 104 mmol/L (98-107); COSMO 288; CREATININE 1.1 mg/dL (0.7-1.2); ESTIMATED GFR > 60; GLUCOSE 131 mg/dL (70-104); GOT 20 U/L (10-34); GPT 21 U/L (10-44); POTASSIUM 4.1 mmol/L (3.5-5.1); SODIUM 142 mmol/L (136-145); TCO2 28 mmol/L (25-35); TOTAL BILIRUBIN 0.64 mg/dL (0.20-1.00); TOTAL PROTEIN 5.7 g/dL (6.3-8.3)
[2018-12-06] MEDS: LOPRESSOR PO SCH ×2 (09:43→20:14)
[2018-12-06] MEDS: FERROUS SULFATE PO SCH (09:44)
[2018-12-06] MEDS: VALTREX PO SCH (09:44)
[2018-12-06] MEDS: LASIX PO SCH (09:44)
[2018-12-06] MEDS: THERA M PLUS PO SCH (09:44)
--- NOTE | 2018-12-06 11:48 | PROGRESS NOTE ---
DATE: 12/06/2018 SUBJECTIVE: This morning Mr. Garcia refers to be doing a whole lot better and denies any new complaints. OBJECTIVE: Vital Signs: Blood pressure is 128/61, pulse 69, respirations 17, and temperature 98.9. The patient is saturating 98% on room air. General: Mr. Garcia is an 83-year-old elderly male. He is in bed. He is not in any distress. HEENT: Mucosa is pink and moist. Anicteric. Acyanotic. Neck: Supple. Chest: Clear to auscultation. No crepitations. No rhonchi. Cardiovascular: Regular rate and rhythm. Abdomen: Soft. Extremities: No pedal edema. HYDRO ELECTRIC STATION OPERATOR: The patient is awake, alert, and oriented. LABORATORY DATA: The chemistry is reviewed and it is completely normal. Potassium has normalized. No new imaging studies. MEDICATIONS: The patient's current medications have all been reviewed. ASSESSMENT: 1. Hypotension on presentation, resolved. 2. Congestive heart failure with ejection fraction of 20% to 25% associated with global hypokinesis. The patient was in mild exacerbation on presentation. Improved. 3. History of multiple myeloma and myelodysplastic syndrome. The patient follows up with Dr. Wagner. 4. Hypomagnesemia on presentation, improved. 5. Generalized weakness and deconditioning. Physical Therapy is on board as a plan to hopefully get Mr. Garcia to rehab. 6. Orthostatic hypotension, improved. cc: Felix Nina MD
[2018-12-06] MEDS: ZOCOR PO SCH (20:14)
[2018-12-06] MEDS: ASPIRIN EC PO SCH (20:14)
[2018-12-07] MEDS: HUMALOG SUBQ SCH ×3 (06:15→20:59)
[2018-12-07 07:13] LABS: BASO# 0.01 X1000 (0.0-0.2); BASO% 0.9 % (0.0-0.8); EOS# 0.07 X1000 (0.0-0.7); EOS% 6.2 % (0.0-10.0); HEMATOCRIT 29.8 % (42.0-52.0); HEMOGLOBIN 10.1 g/dL (14.0-18.0); LYMPH# 0.58 X1000 (1.2-3.4); LYMPH% 51.3 % (20.5-51.1); MCH 33.4 PG (27-31); MCHC 33.9 g/dL (33-37); MCV 98.7 FL (81-99); MONO# 0.24 X1000 (0.11-0.59); MONO% 21.2 % (1.7-9.3); MPV 10.6 FL (7.4-10.4); NEUT% 20.4 % (42.2-75.2); PLT 105 X1000 (130-400); RBC 3.02 XMIL (4.7-6.1); RDW 14.9 % (11.5-14.5); WBC 1.13 X1000 (4.8-10.8)
[2018-12-07 07:17] LABS: NEUT# 0.23 X1000 (1.4-6.5)
[2018-12-07 07:36] LABS: AGAP 10; ALB/GLOB RATIO 1.8; ALBUMIN 3.4 g/dL (3.5-5.0); ALKALINE PHOSPHATASE 53 U/L (32-122); BUN 21 mg/dL (8-22); CALCIUM 8.9 mg/dL (8.8-10.2); CHLORIDE 106 mmol/L (98-107); COSMO 285; CREATININE 0.7 mg/dL (0.7-1.2); ESTIMATED GFR > 60; GLUCOSE 117 mg/dL (70-104); GOT 22 U/L (10-34); GPT 24 U/L (10-44); MAGNESIUM 1.5 mg/dL (1.5-2.7); PHOSPHORUS 2.8 mg/dL (2.7-4.5); POTASSIUM 3.5 mmol/L (3.5-5.1); SODIUM 141 mmol/L (136-145); TCO2 25 mmol/L (25-35); TOTAL BILIRUBIN 0.65 mg/dL (0.20-1.00); TOTAL PROTEIN 5.3 g/dL (6.3-8.3)
[2018-12-07] MEDS: LASIX PO SCH (09:28)
[2018-12-07] MEDS: VALTREX PO SCH (09:28)
[2018-12-07] MEDS: FERROUS SULFATE PO SCH (09:28)
[2018-12-07] MEDS: THERA M PLUS PO SCH (09:28)
[2018-12-07] MEDS: MAXIPIME 1 GM in NS 50 ML IV SCH ×2 (09:28→20:59)
[2018-12-07] MEDS: LOPRESSOR PO SCH ×2 (09:28→20:59)
[2018-12-07] MEDS: NS 1,000 ML IV SCH (12:08)
--- NOTE | 2018-12-07 13:27 | PROGRESS NOTE ---
DATE: 12/07/2018 SUBJECTIVE: This morning, Mr. Garcia refers to be doing okay. Denies any new complaints. He is awaiting possible placement to a rehab. OBJECTIVE: Vital Signs: Blood pressure is 117/68, pulse of 83, respirations are 18, temperature is 98.5 degrees, patient was saturating 98% on room air. The patient was still orthostatic positive during this morning. General Examination: Mr. Garcia is an 83-year-old, male. He is in bed. No distress. Family members including the and his son were at the bedside at the time of the encounter. HEENT: Mucosa is pink and moist. Anicteric. Acyanotic. Neck: Supple. Chest: Good air entry bilaterally. There were not any crepitations. No rhonchi. Cardiovascular: Regular rate and rhythm. No murmurs, no rubs, no gallops. GI: Abdomen was soft, nontender. Bowel sounds present. Extremities: No pedal edema. PROJECT GEOPHYSICIST: The patient was awake, alert. Followed basic commands. Laboratory Data: Has been reviewed. WBC is down to 1.13, platelet count of 105,000. Chemistry is completely normal. ProBNP is down to 6494. ASSESSMENT: 1. Orthostatic hypotension. The patient's vitals this morning continue to be orthostatic positive. We are going to discontinue the Lasix and start the patient on mild gentle intravenous fluids of 50 mL per hour for the one day. 2. Congestive heart failure with ejection fraction of 20-25% associated with global hypokinesis. The patient was in mild exacerbation on presentation but he is currently asymptomatic. 3. Pancytopenia, presumably due to underlying myelodysplastic syndrome. The patient is now getting more neutropenic. He is not febrile. He is currently on intravenous antibiotics. We will get his oncologist to evaluate him. 4. History of multiple myeloma and myelodysplastic syndrome. 5. Hypomagnesemia on presentation, resolved. 6. Generalized weakness and deconditioning. Physical therapy is consulted and the patient has been evaluated for rehab placement. cc: Felix Nina MD
--- NOTE | 2018-12-07 14:20 | HEMO/ONC CONSULTATION ---
DATE: 12/07/2018 CHIEF COMPLAINT: We are being consulted regarding neutropenia. The patient has a history of multiple myeloma and MDS. HPI: This is an 83-year-old gentleman who presented to the emergency room after a visit at Dr. Lela Manzanares's office. He was orthostatic with blood pressure of 60/40 while in her office. The family states that the patient has had multiple falls while at home. The patient has known dementia and was unable to answer questions appropriately while in the ER. On my assessment today patient states that he had fallen but he had no significant injuries and he states that he feels pretty good today. He states he did have a good night's sleep and he is not in pain at the present time. The patient is a known patient of ours for multiple myeloma and MDS. We are currently treating him with Revlimid 3 weeks on and 1 week off. According to his his week off started on today also according to his he is not taking his medications appropriately. His son also came out to speak to me to tell me about some deterioration in the patient's dementia. He states that in the evening and early mornings that his father is hallucinating. He states he has multiple conversations with people that are not there, he tells the family about people that live in his closet and multiple other stories regarding people that are not present. Family is concerned about this and are not sure that the patient can go back home. According to the son the patient is in charge of his own medications and he does not believe that he is taking any of them correctly at home. PAST MEDICAL HISTORY: Coronary artery disease status post CABG bypass, type 2 diabetes mellitus, multiple myeloma, myelodysplastic syndrome, degenerative disk disease, congestive heart failure with an ejection fraction of 20 to 25 percent, pulmonary artery hypertension, pancytopenia, benign prostatic hypertrophy, neuropathy, hypertension and hyperlipidemia. PAST SURGICAL HISTORY: Back surgery, CABG, bone marrow biopsy, bilateral inguinal hernia repair, skin cancer removal from his back. SOCIAL HISTORY: The patient quit smoking over 50 years ago. Denies alcohol or illicit drug use. FAMILY HISTORY: Lung cancer and diabetes mellitus. ALLERGIES: No known drug allergies. HOME MEDICATIONS: Proscar, lisinopril, Glucophage, Lopressor, simvastatin, Revlimid, Decadron and Zometa. REVIEW OF SYSTEMS: Negative unless mentioned in the HPI.Vital Signs: Temperature 98.5 degrees, pulse rate 83, respiratory rate 17, blood pressure 117/68, O2 saturation 98% on room air, he is in 0/10 pain. PHYSICAL EXAM: General: This is a chronically ill elderly male in no acute distress. He is somewhat confused but speaks appropriately. HEENT: Sclerae is anicteric. PERRLA. Mucous membranes are moist and pink. Respiratory: Lung sounds are clear to auscultation. Cardiovascular: Normal S1, S2, heart rate and rhythm regular. Abdomen: Soft, nontender, nondistended. Bowel sounds are present. Extremities: No edema noted. MEXICAN FOOD COOK: Converses appropriately, follows commands, awake and alert. LABORATORY: WBCs 1.13, hemoglobin 10.1, hematocrit 29.8, platelet count 105,000, ANC 0.23. BNP 6494. ASSESSMENT: 1. Multiple myeloma with myelodysplastic syndrome. 2. Neutropenia. 3. Anemia. 4. Orthostatic hypotension. 5. Congestive heart failure with ejection fraction of 20 to 25 percent. 6. Generalized weakness and deconditioning. PLAN: The patient is well known to us. He has a history of this 5 Q-MDS and multiple myeloma. Is currently being treated with Decadron and Revlimid 3 weeks on and 1 week off. Today started his 1 week off. We are not sure he is taking his medications appropriately according to his family. His neutropenia is most likely being caused by myelodysplastic syndromes. Give him Neupogen daily until his ANC is greater than 1.0, continue to monitor his counts very closely. His anemia is multifactorial due to myelodysplastic syndrome and chronic renal insufficiency. We will continue to monitor at this time. Continue treatment per medical management. We will continue to follow along closely. Dictated by KALEIGH Francisco for Bhanu Wagner MD Patient seen and examined. Patient known to us for myelodysplastic syndrome and multiple myeloma. He has been on Revlimid 3 weeks on one week off and Decadron 20 mg every Saturday. He was admitted with congestive heart failure and orthostatic hypotension. During the hospitalization he has developed neutropenia. We will stop Revlimid. He is on cefepime. No febrile events at this time. Start Neupogen until ANC greater than 1.0. Try to stop his steroids if he doesnt need it. Continue current management. Bhanu Wagner M.D. cc: Bhanu Wagner MD [facility]
[2018-12-07] MEDS: GRANIX SUBQ SCH (15:11)
[2018-12-07] MEDS: ASPIRIN EC PO SCH (20:58)
[2018-12-07] MEDS: ZOCOR PO SCH (20:58)
[2018-12-08] MEDS: HUMALOG SUBQ SCH ×5 (06:10→21:56)
[2018-12-08 07:01] LABS: AGAP 10; ALB/GLOB RATIO 1.8; ALBUMIN 3.5 g/dL (3.5-5.0); ALKALINE PHOSPHATASE 56 U/L (32-122); BUN 19 mg/dL (8-22); CALCIUM 8.9 mg/dL (8.8-10.2); CHLORIDE 106 mmol/L (98-107); COSMO 283; ESTIMATED GFR > 60; GLUCOSE 93 mg/dL (70-104); GOT 17 U/L (10-34); GPT 22 U/L (10-44); IRON SATURATION 27 %; POTASSIUM 3.4 mmol/L (3.5-5.1); SODIUM 141 mmol/L (136-145); TCO2 25 mmol/L (25-35); TIBC 211 ug/dL; TOTAL BILIRUBIN 0.84 mg/dL (0.20-1.00); TOTAL IRON 58 ug/dL (53-167); TOTAL PROTEIN 5.5 g/dL (6.3-8.3); UNBOUND IRON 153 ug/dL (112-346)
[2018-12-08 07:15] LABS: FERRITIN 248 ng/mL (30-400)
[2018-12-08 07:27] LABS: BASO# 0.01 X1000 (0.0-0.2); BASO% 0.6 % (0.0-0.8); EOS# 0.04 X1000 (0.0-0.7); EOS% 2.4 % (0.0-10.0); HEMATOCRIT 30.8 % (42.0-52.0); HEMOGLOBIN 10.3 g/dL (14.0-18.0); LYMPH# 0.57 X1000 (1.2-3.4); LYMPH% 33.9 % (20.5-51.1); MCH 32.8 PG (27-31); MCHC 33.4 g/dL (33-37); MCV 98.1 FL (81-99); MONO# 0.47 X1000 (0.11-0.59); MPV 11.7 FL (7.4-10.4); NEUT# 0.59 X1000 (1.4-6.5); NEUT% 35.1 % (42.2-75.2); PLT 114 X1000 (130-400); RBC 3.14 XMIL (4.7-6.1); RDW 14.9 % (11.5-14.5); WBC 1.68 X1000 (4.8-10.8)
[2018-12-08 07:38] LABS: LYMPHS 10 % (21-51); MONO 20 % (1-9); SEGS 40 % (42-75)
[2018-12-08] MEDS: MAXIPIME 1 GM in NS 50 ML IV SCH (09:55)
[2018-12-08] MEDS: FERROUS SULFATE PO SCH (09:56)
[2018-12-08] MEDS: THERA M PLUS PO SCH (09:56)
[2018-12-08] MEDS: LOPRESSOR PO SCH ×2 (09:56→21:55)
[2018-12-08] MEDS: NS 1,000 ML IV SCH (09:56)
[2018-12-08] MEDS: VALTREX PO SCH (09:56)
[2018-12-08] MEDS: GRANIX SUBQ SCH (10:23)
[2018-12-08] MEDS: LEVAQUIN PO SCH (13:13)
--- NOTE | 2018-12-08 13:49 | PROGRESS NOTE ---
DATE: 12/08/2018 SUBJECTIVE: This morning, Mr. Garcia refers to be feeling a lot better. He feels stronger than yesterday. OBJECTIVE: Vital Signs: Blood pressure is 112/57, pulse of 71, respirations are 16, temperature is 97.4 degrees, patient is saturating 98% on room air. General Examination: Mr. Garcia is an 83-year-old, elderly, male. He is in bed. No distress. HEENT: Mucosa is pink and moist. Anicteric. Acyanotic. Neck: Supple. Chest: Good air entry bilaterally. No crepitations, no rhonchi. Cardiovascular: Regular rate and rhythm. Abdomen: Soft, nontender. Bowel sounds present. Extremities: No pedal edema. AUTOMOBILE RENTAL CLERK: The patient is awake, alert, and oriented. There is no focal neurologic deficit. Laboratory Data: WBC is up to 1.68, hemoglobin is 10.3, platelet count of 114,000. Chemistry is also reviewed and unremarkable. So far, stool cultures have all been negative. Patient's blood cultures have also been 48 hours negative. ASSESSMENT: 1. Orthostatic hypotension, presumably from medication side effects. 2. Congestive heart failure with ejection fraction of 20% to 25% associated with global hypokinesis. The patient is currently asymptomatic. Has been evaluated by cardiology as well. 3. Pancytopenia secondary to myelodysplastic syndrome. The patient has been started on Neupogen. Absolute neutrophil count seems to be improving. 4. History of multiple myeloma. 5. Hypomagnesemia on presentation, resolved. 6. Generalized weakness and deconditioning. The patient is pending a rehab bed. Physical therapy is on board. PLAN: In general, we think Mr. Garcia is doing a lot better. He still remains slightly orthostatic. His home medications have all been withheld. Cardiology has been on board. He does not seem to be any more symptomatic with the low blood pressure on orthostatic. His cultures have all been negative so I have transitioned his IV antimicrobial to p.o. Levaquin. The patient has also been seen by hematology/oncology. His pancytopenia with severe neutropenia seems to be improving. He has been started on Neupogen. Mr. Garcia is awaiting a rehab bed to be discharged. Son and were at the bedside at the time of the encounter. cc: Felix Nina MD
--- NOTE | 2018-12-08 14:20 | HEMO/ONC PROGRESS NOTE ---
DATE: 12/08/2018 HISTORY OF PRESENT ILLNESS: Mr. Garcia continues to look weak this morning. States he had a good night with no significant events. He denies any new complaints. The patient is awaiting placement to a rehab for further treatment. OBJECTIVE: Vital signs: Temperature 97.4, pulse rate 71, respiratory rate 16, blood pressure 112/57, O2 saturation is 98% on room air. He is in 0/10 pain. General: This is a chronically ill-appearing gentleman in no acute distress. Skin: Warm, dry and intact without rashes or lesions. HEENT: Sclerae is anicteric. PERRLA. Oral mucosa is pink and moist. Cardiovascular: Normal S1 and S2. Heart rate and rhythm regular. Respiratory: No signs of respiratory distress. Breath sounds are clear to auscultation. Abdomen: soft and nontender without distention. Bowel sounds present. Extremities: No edema noted. LEGAL RECORDS MANAGER: Converses appropriately. Awake and alert. DIAGNOSTIC DATA: WBC is 1.68, hemoglobin 10.3, hematocrit 30.8, platelet count 114, ANC is 0.59. Potassium is 3.4. Iron profile adequate. B12 and folate adequate. PLAN: The patient is known to us for myelodysplastic syndrome and multiple myeloma. He has currently been on Revlimid for 3 weeks on and 1 week off and Decadron 20 every Saturday. Since he has developed neutropenia, we will stop his Revlimid, continue cefepime at this time. The patient has been afebrile. Continue Neupogen daily until his ANC is greater than 1.0. Stop steroids if they are not necessary. Continue current medical management. We will continue to follow, and we will follow as outpatient. Dictated by KALEIGH Francisco for Bhanu Wagner MD Patient seen and examined. As above. Patient reports that his mental status is improving. ANC is trending up. Continue Neupogen. Revlimid has been stopped. Consult physical therapy and get him out of bed. Plans for rehabilitation placement. Okay to hold Revlimid while he is in rehabilitation. Discussed with Dr. Canas. Bhanu Wagner M.D. cc: Bhanu Wagner MD [facility]
[2018-12-08] MEDS: ASPIRIN EC PO SCH (21:55)
[2018-12-08] MEDS: ZOCOR PO SCH (21:56)
[2018-12-09] MEDS: NS 1,000 ML IV SCH (04:00)
[2018-12-09] MEDS: HUMALOG SUBQ SCH ×4 (06:44→22:13)
[2018-12-09 07:00] LABS: BASO# 0.01 X1000 (0.0-0.2); BASO% 0.4 % (0.0-0.8); EOS# 0.07 X1000 (0.0-0.7); EOS% 2.5 % (0.0-10.0); HEMATOCRIT 30.8 % (42.0-52.0); HEMOGLOBIN 10.3 g/dL (14.0-18.0); IMM GRAN# 0.23 X1000 (0.0-0.04); IMM GRAN% 8.4 % (0.0-0.5); LYMPH# 0.62 X1000 (1.2-3.4); LYMPH% 22.5 % (20.5-51.1); MCH 33.4 PG (27-31); MCHC 33.4 g/dL (33-37); MONO# 0.82 X1000 (0.11-0.59); MONO% 29.8 % (1.7-9.3); MPV 11.5 FL (7.4-10.4); NEUT% 36.4 % (42.2-75.2); PLT 107 X1000 (130-400); RBC 3.08 XMIL (4.7-6.1); RDW 14.9 % (11.5-14.5); WBC 2.75 X1000 (4.8-10.8)
[2018-12-09 07:18] LABS: BANDS 10 % (0-1); LYMPHS 28 % (21-51); MONO 18 % (1-9); SEGS 42 % (42-75)
[2018-12-09 07:20] LABS: AGAP 8; ALB/GLOB RATIO 1.6; ALBUMIN 3.4 g/dL (3.5-5.0); ALKALINE PHOSPHATASE 62 U/L (32-122); ANISOCYTOSIS 1+; BUN 17 mg/dL (8-22); CALCIUM 9.1 mg/dL (8.8-10.2); CHLORIDE 111 mmol/L (98-107); COSMO 287; CREATININE 0.9 mg/dL (0.7-1.2); ESTIMATED GFR > 60; GLUCOSE 105 mg/dL (70-104); GOT 16 U/L (10-34); GPT 20 U/L (10-44); HYPOCHROM 1+; POIKILOCYTOSIS 1+; POTASSIUM 3.6 mmol/L (3.5-5.1); SODIUM 143 mmol/L (136-145); TCO2 24 mmol/L (25-35); TOTAL BILIRUBIN 0.69 mg/dL (0.20-1.00); TOTAL PROTEIN 5.5 g/dL (6.3-8.3)
[2018-12-09] MEDS ORDERED: DECADRON PO SCH (09:00)
[2018-12-09] MEDS: THERA M PLUS PO SCH (09:32)
[2018-12-09] MEDS: FERROUS SULFATE PO SCH (09:32)
[2018-12-09] MEDS: LOPRESSOR PO SCH ×2 (09:32→22:12)
[2018-12-09] MEDS: VALTREX PO SCH (09:32)
[2018-12-09] MEDS: LEVAQUIN PO SCH (09:32)
--- NOTE | 2018-12-09 12:54 | HEMO/ONC PROGRESS NOTE ---
DATE: 12/09/2018 HISTORY OF PRESENT ILLNESS/SUBJECTIVE: Mr. Garcia is resting comfortably in bed this morning. He states he feels stronger and better than he did yesterday. He states he had a good night's rest without any significant events. He is awaiting placement at a rehab. His family is at bedside. OBJECTIVE: Vital Signs: Temperature 97.9 degrees, pulse rate 74, respiratory rate 19, blood pressure 99/58, O2 saturation 99% on room air. He is in 0/10 pain. Physical Examination: General: Chronically ill-appearing, elderly gentleman in no acute distress. Skin: Warm, dry, and intact without rashes or lesions. HEENT: Sclerae are anicteric. PERRLA. Oral mucosa is pink and moist. Cardiovascular: Normal S1, S2. Heart rate and rhythm regular. Respiratory: No signs of respiratory distress. Breath sounds clear to auscultation. Abdomen: Soft, nontender, without distention. Bowel sounds are present. Extremities: No edema noted. Neurological: Converses appropriately. Awake, alert, and oriented. Laboratory: WBCs 2.75, hemoglobin 10.3, hematocrit 30.8, platelet count 107,000, ANC 1.0. ASSESSMENT: 1. Multiple myeloma with myelodysplastic syndrome. 2. Neutropenia, resolved, now leukopenia. 3. Anemia. 4. Orthostatic hypotension, resolved. 5. Congestive heart failure with ejection fraction of 20 to 25 percent. 6. Generalized weakness and deconditioning. PLAN: The patient's ANC has reached 1.0. We will stop Neupogen at this time. We will continue to monitor. The patient has stopped Revlimid. If the patient goes to a rehabilitation, it is okay for him to remain off Revlimid while he is there. Physical therapy needs to assist with the patient getting out of bed. The patient has remained afebrile. Continue medical management. We will continue to follow. Dictated by KALEIGH Francisco for Bhanu Wagner MD cc: Bhanu Wagner MD [facility]
--- NOTE | 2018-12-09 15:31 | PROGRESS NOTE ---
DATE: 12/09/2018 SUBJECTIVE: Patient has no major complaints. OBJECTIVE: Vital Signs: Blood pressure 99/58, heart rate 74, respiratory rate 19, temperature 97.9 degrees, 99% on room air. Cardiovascular: Regular rate and rhythm. Pulmonary: Bilateral breath sounds clear. Gastrointestinal: Soft, nontender, nondistended. Bowel sounds are positive. LABORATORY DATA: White count is 2, hemoglobin 10, hematocrit 30, platelets of 107,000. Rest of his counts look okay. PROBLEM LIST: 1. Orthostatic hypotension, which I guess is presumably due to medications which I am not sure which medications; I am not entirely sure that Revlimid causes that. He is still somewhat symptomatic. I am just going to check his adrenal axis. Unfortunately, though, he is getting dexamethasone so that may affect the results, but we will see. 2. Congestive heart failure. Appears to be compensated. Continue to follow. 3. Pancytopenia. He has been on Neupogen, but white count is continuing to improve. 4. History of multiple myeloma. He has been on Revlimid, but that has been discontinued for the time being. DISPOSITION: Anticipate discharge tomorrow to rehabilitation if stable. cc: Chandler Burks MD
[2018-12-09] MEDS: DUONEB (A & A) INH SCH (19:56)
[2018-12-09] MEDS ORDERED: LUMIGAN 0.01% OPH SOLUTION BOTH EYES SCH (21:00)
[2018-12-09] MEDS: ZOCOR PO SCH (22:13)
[2018-12-09] MEDS: ASPIRIN EC PO SCH (22:13)
[2018-12-10] MEDS ORDERED: CORTROSYN IV ONE (06:00)
[2018-12-10] MEDS: HUMALOG SUBQ SCH ×2 (06:00→12:15)
[2018-12-10 08:29] LABS: BASO# 0.01 X1000 (0.0-0.2); BASO% 0.2 % (0.0-0.8); HEMATOCRIT 28.7 % (42.0-52.0); HEMOGLOBIN 9.6 g/dL (14.0-18.0); LYMPH# 0.55 X1000 (1.2-3.4); LYMPH% 10.7 % (20.5-51.1); MCH 33.2 PG (27-31); MCHC 33.4 g/dL (33-37); MCV 99.3 FL (81-99); MONO# 1.09 X1000 (0.11-0.59); MONO% 21.2 % (1.7-9.3); MPV 11.4 FL (7.4-10.4); NEUT% 67.9 % (42.2-75.2); PLT 126 X1000 (130-400); RBC 2.89 XMIL (4.7-6.1); RDW 15.2 % (11.5-14.5); WBC 5.15 X1000 (4.8-10.8)
[2018-12-10 09:04] LABS: AGAP 9; ALB/GLOB RATIO 1.7; ALBUMIN 3.5 g/dL (3.5-5.0); ALKALINE PHOSPHATASE 58 U/L (32-122); BUN 31 mg/dL (8-22); CALCIUM 10.1 mg/dL (8.8-10.2); CHLORIDE 106 mmol/L (98-107); COSMO 291; CREATININE 0.6 mg/dL (0.7-1.2); ESTIMATED GFR > 60; GLUCOSE 219 mg/dL (70-104); GOT 13 U/L (10-34); GPT 18 U/L (10-44); POTASSIUM 4.2 mmol/L (3.5-5.1); SODIUM 139 mmol/L (136-145); TCO2 24 mmol/L (25-35); TOTAL BILIRUBIN 0.55 mg/dL (0.20-1.00); TOTAL PROTEIN 5.6 g/dL (6.3-8.3)
[2018-12-10 09:07] LABS: MAGNESIUM 1.5 mg/dL (1.5-2.7); PHOSPHORUS 2.4 mg/dL (2.7-4.5)
[2018-12-10] MEDS: LOPRESSOR PO SCH (09:33)
[2018-12-10] MEDS: LEVAQUIN PO SCH (09:34)
[2018-12-10] MEDS: THERA M PLUS PO SCH (09:34)
[2018-12-10] MEDS: FERROUS SULFATE PO SCH (09:34)
[2018-12-10] MEDS: VALTREX PO SCH (09:34)
[2018-12-10 09:43] LABS: BANDS 22 % (0-1); LYMPHS 6 % (21-51); MONO 16 % (1-9); SEGS 56 % (42-75)
[2018-12-10 09:45] LABS: HYPOCHROM 1+; POIKILOCYTOSIS 2+
[2018-12-10 09:46] LABS: BURR CELLS 1+; LARGE PLATELETS 1+; SCHISTOCYTES OCCASIONAL
[2018-12-10] MEDS: DUONEB (A & A) INH SCH (09:49)
--- NOTE | 2018-12-10 10:54 | DISCHARGE SUMMARY ---
ADMISSION DATE: 12/03/2018 DISCHARGE DATE: 12/10/2018 ADMISSION DIAGNOSES: 1. Acute on chronic systolic congestive heart failure. 2. Pulmonary edema. 3. Hypomagnesemia. 4. Dementia. 5. Diabetes mellitus type 2. 6. Hypertension. 7. Myelodysplastic syndrome on oral chemotherapy. 8. Status post pacemaker. DISCHARGE DIAGNOSIS: 1. Orthostatic hypotension, likely medication-related. 2. Acute on chronic systolic congestive heart failure, now compensated. 3. Pancytopenia. Has been on Neupogen but is improving. 4. Multiple myeloma. Controlled. CONSULTATIONS: 1. Dr. Rupert Zhang. 2. Dr. Bhanu Wagner. SURGERIES AND PROCEDURES: None. HOSPITAL COURSE: On 12/03/2018 Mr. Hitesh Garcia, an 83-year-old male, presented to the emergency department from Dr. Lela Manzanares's office. According to Dr. Manzanares, the patient had been orthostatic and having blood pressures of 60/40 standing in her office. He has dementia and unable answer many questions. According to the family, had been falling frequently for the past month prior to admission. It looks like the lowest his blood pressure got was 98/32 but and that was on day of admission, but later on that afternoon, had a 67/58, but it looks like mainly stayed anywhere from 100 to 120s systolically. Heart rhythm and rate remained controlled. Cardiology was consulted and medications for titrated which included lisinopril, metoprolol and diuretics. He had a low magnesium level that was replaced. He essentially remained in the hospital with intentions for facility placement. Physical Therapy was involved due to generalized weakness and deconditioning. He did develop some pancytopenia but it was presumably due to underlying myelodysplastic syndrome, becoming a little more neutropenic. So his oncologist, Dr. Wagner, was consulted, who was concerned about the possibility that the patient had not been taking his medications appropriately, so he initiated him on Neupogen daily until his ANC was greater than 1. Apparently, he was also initiated on antibiotics due to possible stool infection but those were negative and switched to p.o. Levaquin. Today vital signs are stable. Medications are stable. Lab work is stable and he is going to be discharged to [facility]. DISCHARGE VITAL SIGNS: Temperature 98.1 degrees, heart rate 52, respiratory rate 20, blood pressure 101/79, O2 saturation 96% on room air. DISCHARGE LABORATORY DATA: White blood cells 5000, hemoglobin 9, hematocrit 28, platelet count 126,000. Sodium 139, potassium 4.2, BUN 31, creatinine 0.6, glucose 219, calcium 10. Phosphorus 2.4, magnesium 1.5. Bilirubin 0.55, AST 13, ALT 18. Albumin 3.5. Cortisol response has not fully resulted yet. PERTINENT IMAGING: On 12/03/2018 chest x-ray. Minimal interstitial pulmonary edema versus fibrosis and cardiomegaly. On 12/05/2018, chest x-ray has a stable chest. EKG on 12/03/2018, atrially paced rhythm with a prolonged AV conduction. Rate was 72. DISCHARGE MEDICATIONS: 1. Aspirin enteric-coated 81 mg p.o. nightly. 2. Lumigan 1 drop both eyes nightly. 3. Decadron three 4 mg tablets p.o. every Saturday. 4. Metformin 500 mg p.o. twice daily. 5. Albuterol/Atrovent nebs twice a day. 6. Ferrous sulfate. 325 mg p.o. daily. 7. Multivitamin 1 capsule p.o. daily. 8. Simvastatin 20 mg p.o. nightly. 9. Valtrex 500 mg p.o. daily. 10. Metoprolol 12.5 mg p.o. twice daily. DISCHARGE PHYSICIAN FOLLOWUP: 1. Lela Manzanares CRNA. 2. Dr. Bhanu Wagner. 3. Dr. Rupert Zhang. 4. [facility] month for outpatient followup with Dr. Zhang. DISCHARGE ACTIVITY: As tolerated. DISCHARGE DIET: Healthy heart, low sodium, low salt diabetic. DISCHARGE INSTRUCTIONS: If her condition changes, contact her physician and/or return to the emergency department. Changes may include, but not limited to, shortness of breath, increased fatigue, excessive bleeding, unplanned planned weight loss or gain, unmanageable pain, signs or symptoms of infection. DISCHARGE DISPOSITION: [facility]. Dictated by KALEIGH Eng for Chandler Burks MD cc: KALEIGH Eng MD
[2018-12-10 12:33] VITALS: BP 100/49
--- NOTE | 2018-12-10 13:09 | DISCHARGE SUMMARY ---
ADMISSION DATE: 12/03/2018 DISCHARGE DATE: 12/10/2018 DISCHARGE DIAGNOSIS: Acute congestive heart failure. The patient is doing well. Apparently he had an episode where he kind of got agitated this morning but that is resolved. In any case, he is breathing comfortably on room air. Heart rate in the 50s. Lungs sound clear. He feels stable for discharge today. He did have a cortisol test. His cortisol level was 1 and went up to 14 at 30 minutes, so this is not consistent with adrenal insufficiency, so he will be discharged as described. He has been getting Levaquin but I am not entirely sure what we have been treating with the Levaquin. I have not continued it at this point. I guess there was concern over sepsis on admission, but he has not had any temperature and no white count. In fact, now the white count stabilized. I am not going to continue Levaquin at this point, but we will continue to follow. cc: Chandler Burks MD
[2018-12-16] MEDS ORDERED: PATIENT'S OWN MED PO SCH (09:00)
== END 2018-12-10 14:34 | DRG 292 ==
LOC: ED 13:44 → EDIPHOLD 17:02 → SUATTDRO 17:02 → 3N 12-04 00:05
PROVIDERS: ATTEND Internal Medicine